=== PATIENT | male | born 1980 | race Caucasian/White ===

== ENCOUNTER → 2016-02-21 | Outpatient (CLI) | payer BC ==
--- NOTE | 2016-02-21 07:46 | DIAGNOSTIC IMAGING REPORT ---
ULTRASOUND RIGHT UPPER QUADRANT ABDOMEN CLINICAL HISTORY: Elevated hepatic transaminases. COMPARISON STUDY: No priors. TECHNIQUE: Real-time, grayscale, and color flow sonography of the right upper quadrant of the abdomen was performed. Images are reviewed in the transverse and longitudinal planes. FINDINGS: Liver: The liver appears mildly enlarged and demonstrates heterogeneous increased echotexture consistent with hepatic steatosis. There is no intrahepatic biliary ductal dilatation. The main portal vein is patent. Gallbladder: The gallbladder is normal in appearance. No gallstones are identified. There is no gallbladder wall thickening or pericholecystic fluid. A sonographic Irizarry's sign is reportedly absent. The common bile duct measures up to 0.4 cm in diameter. Pancreas: Visualized portions of the pancreatic head and body are normal in appearance. Right kidney: Survey images of the right kidney demonstrate normal size and echotexture. There is no hydronephrosis. Ascites: None. IMPRESSION: 1. Findings are consistent with mild hepatic steatosis. 2. No gallstones are identified. Electronically signed by: Jv Schwartz M.D. 02/21/2016 7:44 AM Dictated Date/Time: 02/21/2016 7:43 AM
== END | disposition home or self-care (01) ==
LOC: C.ULTR 07:06
PROVIDERS: ATTEND Nurse Practitioner
DX: R79.89 Other specified abnormal findings of blood chemistry (principal)

== ENCOUNTER 2020-04-01 10:39 | Inpatient (IN) ==
--- OUTSIDE RECORDS SUMMARY | 2020-04-01 10:42 | External Medical Summary | Continuity of Care Document ---
:1980 Author Name Jeri Rush, Provider Address Unavailable Unavailable , Care Team Providers Name Role Phone Unavailable Unavailable Unavailable Zuri Balderas Unavailable [email or web address] Zuri Muro Unavailable Unavailable [facility] Unavailable Unavailable Unavailable Unavailable Unavailable Problems Contact dermatitis due to poison amairani (692.6) (L23.7) NAFL (nonalcoholic fatty liver) (571.8) (K76.0) Nasal obstruction (478.19) (J34.89) Umbilical hernia (553.1) (K42.9) Back pain, lumbosacral (724.2) (M54.5) Abnormal liver function test (790.6) (R94.5) Allergies and Adverse Reactions No Known Drug Allergies (Allergy) Medications methylPREDNISolone 4 MG Oral Tablet Ther apy Pack; Take medication per package directions SUSAN Muro Start: 15-Oct-2016 Quantity: 1 21 Tablet Pack Refills: 0 Vitamin D Adri MORRISON Refills: 0 Procedures History of Surgery Of The Retina Status: Completed History of Surgery Status: Completed Immunizations Tdap (Adacel) On: 06-Aug-2014 Influenza On: 06-Dec-2014 Family History Mother Family history of kidney stones (V18.69) (Z84.1) Status: Act branden Family history of malignant neoplasm of breast (V16.3) (Z80. 3) Status: Active Sister Family history of kidney stones (V18.69) (Z84.1) Status: Act branden Grandfather Family history of malignant neoplasm of prostate (V16. 42) (Z80.42) Status: Active Social History - Smoking Status Never smoked tobacco Plan of Treatment Planned Observations Planned Goals not documented Results No Known Results Results not documented
--- OUTSIDE RECORDS SUMMARY | 2020-04-01 10:43 | External Medical Summary | Continuity of Care Document ---
:1980 Author Name Jeri Rush, Provider Address Unavailable Unavailable , Care Team Providers Name Role Phone Unavailable Unavailable Unavailable Zuri Balderas Unavailable [email or web address] Zuri Muro Unavailable Unavailable [facility] Unavailable Unavailable Unavailable Unavailable Unavailable Problems Umbilical hernia (553.1) (K42.9) Nasal obstruction (478.19) (J34.89) Abnormal liver function test (790.6) (R94.5) NAFL (nonalcoholic fatty liver) (571.8) (K76.0) Back pain, lumbosacral (724.2) (M54.5) Contact dermatitis due to poison amairani (692.6) (L23.7) Allergies and Adverse Reactions No Known Drug Allergies (Allergy) Medications Vitamin D Adri MORRISON Refills: 0 methylPREDNISolone 4 MG Oral Tablet Ther apy Pack; Take medication per package directions SUSAN Muro Start: 15-Oct-2016 Quantity: 1 21 Tablet Pack Refills: 0 Procedures History of Surgery Of [...]
[2020-04-01] MEDS ORDERED: SODIUM CHLORIDE 0.9% 1000ML 2,000 ML IV ONE (11:01)
--- NOTE | 2020-04-01 11:04 | Emergency Department Note ---
Impression & Plan Cholelithiasis, Elevated LFTs, Jaundice, Choledocholithiasis ED Provider Note NAME: SWETA CHONG AGE: 39 SEX: M : 1980 ARRIVES VIA: Walk-In INFORMANT: Patient ED PROVIDER(S): Wilman Cordoba DO CHIEF COMPLAINT: Abdominal pain HPI: Patient is a 39-year-old male that presents to the ER for epigastric nausea and upset stomach. This is has been present for the past week. notes that he has been a little bit yellow. He has been admitting to pale stools and dark urine. He feels itchy throughout. He denies any headache or change in vision. No chest pain or shortness of breath. Denies any dysuria, urgency or frequency. No other exacerbating or remitting factors. ROS: See above HPI for pertinent positives & negatives. A total of 10 systems reviewed and were otherwise negative. PAST MEDICAL HISTORY:See Below PAST SURGICAL HISTORY:See Below FAMILY HISTORY:See Below SOCIAL HISTORY:See Below HOME MEDICATIONS:See Below ALLERGIES:See Below VITALS:See Below PHYSICAL EXAMINATION: GENERAL: Sitting up in bed, alert, well appearing, well nourished, no distress, non-toxic EYE EXAM: Scleral icterus OROPHARYNX: no exudate, no erythema, lips, buccal mucosa, and tongue normal and mucous membranes are moist NECK: supple, no nuchal rigidity, no adenopathy, non-tender LUNGS: Clear to auscultation. Normal chest wall mechanics HEART: no murmurs, S1 normal and S2 normal ABDOMEN: abdomen soft, non-tender, normo-active bowel sounds, no masses, no rebound or guarding. UPPER EXTREMITIES: upper extremities are grossly normal. LOWER EXTREMITIES: No pitting edema. NEURO EXAM: Normal sensorium, cranial nerves II-XII grossly intact, normal speech, no gross weakness of arms, no gross weakness of legs. MEDICAL DECISION MAKING: Patient is a 39-year-old male who presents the ER for pale stools, dark urine, itchiness and yellowish hue. He also has epigastric abdominal discomfort. IV was established blood work was obtained. Labs show no significant leukocytosis or anemia. INR unremarkable. BMP was unremarkable. T bili was elevated at nearly 4. AST was 220 and ALT was 590. Alk phos was elevated. Lipase was normal. UA with an elevated bilirubin. Covid was negative. Ultrasound shows cholelithiasis. Based on his presentation I am concerned that he probably does have choledocholithiasis. Discussed with Anish Flores from gastroenterology who will evaluate him. He was given IV fluids, Zofran and Zosyn. Discussed with Dr. Spenser Soto for further evaluation. Triage Nursing notes reviewed. Limited review of prior medical records performed Vital Signs: reviewed and remarkable for no significant abnormalities Differential diagnosis: Differential diagnoses includes but is not limited to gastritis, peptic ulcer disease, GERD, gallbladder disease, pancreatitis, small bowel obstruction, acute coronary syndrome, pericarditis, ischemic bowel, irritable bowel disease, irritable bowel syndrome, appendicitis, diverticulitis, malignancy, hernia, urinary tract infection, torsion, perforation, trauma, infectious. ER treatment provided: See below Diagnostics interpreted by me: ECG: none Cardiac Monitoring: An order was placed for continuous cardiac monitoring. The monitor shows a rate of 60 with sinus rhythm. Laboratory studies: As stated above and show below. Imaging studies: Ultrasound shows cholelithiasis Consultation(s): Discussed with Jacki Flores as stated above Discussed with hospitalist for further evaluation Procedures: none Critical Care: None Past Med/Surg History Medical History (Updated 04/01/20 @ 16:41 by Wilman Cordoba DO) Left forearm fracture Surgical History (Updated 04/01/20 @ 14:06 by Andrea Iyer PA-C) H/O eye surgery Family History (Updated 04/01/20 @ 14:07 by Andrea Iyer PA-C) Mother Breast cancer Social History (Updated 04/01/20 @ 14:10 by Andrea Iyer PA-C) Smoking Status: Never smoker Hx Alcohol Use: No Hx Substance Use: No Preferred Language: Ukrainian Communication Ability: Effective Visual Impairment: No Limitations Hearing Ability: Normal [employer] Coordinator Required: No Beliefs That Will Affect Care: None marital status: marital status details: Lives with Marla Current Living Situation: Spouse and Family current occupational status: employed Feels Safe at Home: Yes Safety Concerns: Feels Safe At This Time Physical Activity Frequency Comment: Rides bike frequently. Assistive Devices: Contacts and Glasses Allergies Allergies Allergy/AdvReac Type Severity Reaction Status Date / Time No Known Allergies Allergy Unverified 04/01/20 11:21 Home Meds Home Medications Medication Instructions Recorded Confirmed bismuth subsalicylate 2 tab PO QID PRN 04/01/20 04/01/20 [Pepto-Bismol] calcium carbonate-simethicone 2 tab PO DAILY PRN 04/01/20 04/01/20 [Tums Anti-Gas/Antacid] diphenhydramine HCl [Benadryl] 25 mg PO HS PRN 04/01/20 04/01/20 omeprazole magnesium [Prilosec OTC] 20 mg PO DAILY 04/01/20 04/01/20 Results & Data (ED) Vital Signs Vital Signs - 24 hr 04/01/20 10:42 04/01/20 11:11 04/01/20 11:56 Temperature 36.8 C Temperature Source Temporal Artery Scan Pulse Rate 66 59 L Pulse Rate [Left] Respiratory Rate 16 14 Respiratory Effort / Characteristics Non-Labored Respiratory Depth Normal Respiratory Pattern Regular Blood Pressure 135/86 Blood Pressure [Right Arm] Blood Pressure Mean 102 Blood Pressure Mean [Right Arm] Blood Pressure Position Sitting Blood Pressure Position [Right Arm] Pulse Oximetry 98 99 Oxygen Delivery Method Room Air Room Air Sepsis Recent Fever Within 48 Hours No Sepsis New/Unexplained Change in Mental Status No Sepsis Action Taken by Nursing No Action Required 04/01/20 12:00 04/01/20 12:01 04/01/20 12:30 Temperature Temperature Source Pulse Rate 54 L 58 L 58 L Pulse Rate [Left] Respiratory Rate 16 12 14 Respiratory Effort / Characteristics Respiratory Depth Respiratory Pattern Blood Pressure 133/77 138/82 Blood Pressure [Right Arm] Blood Pressure Mean 95 100 Blood Pressure Mean [Right Arm] Blood Pressure Position Blood Pressure Position [Right Arm] Pulse Oximetry Oxygen Delivery Method Sepsis Recent Fever Within 48 Hours Sepsis New/Unexplained Change in Mental Status Sepsis Action Taken by Nursing 04/01/20 12:31 04/01/20 13:00 04/01/20 13:01 Temperature Temperature Source Pulse Rate 55 L 61 60 Pulse Rate [Left] Respiratory Rate 16 16 15 Respiratory Effort / Characteristics Respiratory Depth Respiratory Pattern Blood Pressure 134/83 Blood Pressure [Right Arm] Blood Pressure Mean 100 Blood Pressure Mean [Right Arm] Blood Pressure Position Blood Pressure Position [Right Arm] Pulse Oximetry Oxygen Delivery Method Sepsis Recent Fever Within 48 Hours Sepsis New/Unexplained Change in Mental Status Sepsis Action Taken by Nursing 04/01/20 13:30 04/01/20 13:31 Temperature Temperature Source Pulse Rate 60 64 Pulse Rate [Left] 65 Respiratory Rate 18 18 Respiratory Effort / Characteristics Non-Labored Spontaneous Respiratory Depth Normal Respiratory Pattern Blood Pressure 144/97 H Blood Pressure [Right Arm] 144/97 H Blood Pressure Mean 112 Blood Pressure Mean [Right Arm] 112 Blood Pressure Position Blood Pressure Position [Right Arm] Lying Pulse Oximetry 97 Oxygen Delivery Method Room Air Sepsis Recent Fever Within 48 Hours Sepsis New/Unexplained Change in Mental Status Sepsis Action Taken by Nursing Laboratory Data Result diagrams: 04/01/20 11:10 04/01/20 11:10 Lab Results 04/01/20 04/01/20 04/01/20 Range/Units 11:05 11:10 11:10 WBC 7.15 (4.8-10.8) K/uL RBC 5.40 (4.7-6.1) M/uL Hgb 16.5 (14.0-18.0) g/dL Hct 47.9 (42-52) % MCV 88.7 (80-100) fL MCH 30.6 (25-34) pg MCHC 34.4 (32-36) g/dL RDW Std Deviation 43.6 (36.4-46.3) fL RDW Coeff of Quynh 13.5 (11.5-14.5) % Plt Count 278 (130-400) K/uL MPV 10.8 H (7.4-10.4) fL Immature Gran % (Auto) 0.3 % Neut % (Auto) 67.9 % Lymph % (Auto) 23.6 % [place] % (Auto) 5.5 % Eos % (Auto) 2.0 % Baso % (Auto) 0.7 % Neut # (Auto) 4.86 (1.4-6.5) K/uL Lymph # (Auto) 1.69 (1.2-3.4) K/uL [place] # (Auto) 0.39 (0.11-0.59) K/uL Eos # (Auto) 0.14 (0-0.5) K/uL Baso # (Auto) 0.05 (0-0.2) K/uL Immature Gran # (Auto) 0.02 (0.00-0.02) K/uL PT 9.3 (9.0-12.0) Seconds INR 0.9 (0.9-1.1) Sodium (136-145) mmol/L Potassium (3.5-5.1) mmol/L Chloride (98-107) mmol/L Carbon Dioxide (21-32) mmol/L Anion Gap (3-11) BUN (7-18) mg/dl Creatinine (0.6-1.4) mg/dl Est Cr Clr Drug Dosing ml/min Est GFR ( Amer) Est GFR (Non-Af Amer) BUN/Creatinine Ratio (10-20) Glucose (70-99) mg/dl Calcium (8.5-10.1) mg/dl Total Bilirubin (0.2-1) mg/dl AST (15-37) U/L ALT (12-78) U/L Alkaline Phosphatase (45-117) U/L Total Protein (6.4-8.2) gm/dl Albumin (3.4-5.0) gm/dl Globulin (2.5-4.0) gm/dl Albumin/Globulin Ratio (0.9-2) Lipase (73-393) U/L Urine Color Dark Yellow Urine Appearance Clear (Clear) Urine pH 5.5 (4.5-7.5) Ur Specific [place] 1.013 (1.000-1.030) Urine Protein Negative (Negative) Urine Glucose (UA) Negative (Negative) Urine Ketones Negative (Negative) Urine Blood Negative (Negative) Urine Nitrite Negative (Negative) Urine Bilirubin 2+ H (Negative) Urine Urobilinogen Negative (Negative) Ur Leukocyte Esterase Negative (Negative) COVID-19 Eval Order SARS-CoV-2 (PCR) (Negative) Influenza Type A (PCR) (Neg) Influenza Type B (PCR) (Neg) RSV (RT-PCR) (Neg) 04/01/20 04/01/20 04/01/20 Range/Units 11:10 12:45 12:45 WBC (4.8-10.8) K/uL RBC (4.7-6.1) M/uL Hgb (14.0-18.0) g/dL Hct (42-52) % MCV (80-100) fL MCH (25-34) pg MCHC (32-36) g/dL RDW Std Deviation (36.4-46.3) fL RDW Coeff of Quynh (11.5-14.5) % Plt Count (130-400) K/uL MPV (7.4-10.4) fL Immature Gran % (Auto) % Neut % (Auto) % Lymph % (Auto) % [place] % (Auto) % Eos % (Auto) % Baso % (Auto) % Neut # (Auto) (1.4-6.5) K/uL Lymph # (Auto) (1.2-3.4) K/uL [place] # (Auto) (0.11-0.59) K/uL Eos # (Auto) (0-0.5) K/uL Baso # (Auto) (0-0.2) K/uL Immature Gran # (Auto) (0.00-0.02) K/uL PT (9.0-12.0) Seconds INR (0.9-1.1) Sodium 140 (136-145) mmol/L Potassium 4.1 (3.5-5.1) mmol/L Chloride 106 (98-107) mmol/L Carbon Dioxide 29 (21-32) mmol/L Anion Gap 5.0 (3-11) BUN 10 (7-18) mg/dl Creatinine 0.99 (0.6-1.4) mg/dl Est Cr Clr Drug Dosing 96.0 ml/min Est GFR ( Amer) 110.0 Est GFR (Non-Af Amer) 94.9 BUN/Creatinine Ratio 9.9 L (10-20) Glucose 92 (70-99) mg/dl Calcium 9.4 (8.5-10.1) mg/dl Total Bilirubin 3.9 H (0.2-1) mg/dl AST 220 H (15-37) U/L ALT 590 H (12-78) U/L Alkaline Phosphatase 369 H (45-117) U/L Total Protein 8.4 H (6.4-8.2) gm/dl Albumin 4.0 (3.4-5.0) gm/dl Globulin 4.4 H (2.5-4.0) gm/dl Albumin/Globulin Ratio 0.9 (0.9-2) Lipase 270 (73-393) U/L Urine Color Urine Appearance (Clear) Urine pH (4.5-7.5) Ur Specific [place] (1.000-1.030) Urine Protein (Negative) Urine Glucose (UA) (Negative) Urine Ketones (Negative) Urine Blood (Negative) Urine Nitrite (Negative) Urine Bilirubin (Negative) Urine Urobilinogen (Negative) Ur Leukocyte Esterase (Negative) COVID-19 Eval Order CovFluRsv at [facility] SARS-CoV-2 (PCR) NEGATIVE (Negative) Influenza Type A (PCR) Negative (Neg) Influenza Type B (PCR) Negative (Neg) RSV (RT-PCR) Negative (Neg) Administered Medications Lactated Ringer's (Lr) 1,000 mls @ 125 mls/hr IV .Q8H TIMOTEO Stop: 05/01/20 15:59 Last Admin: 04/01/20 16:18 Dose: 125 mls/hr Documented by: [id number] Ondansetron HCl (Ondansetron Inj 2 Mg/Ml 2 Ml Vial) 4 mg IV Q6H PRN PRN Reason: Nausea Stop: 05/01/20 15:54 Last Admin: 04/01/20 16:18 Dose: 4 mg Documented by: [id number] Discontinued Medications Sodium Chloride (Nss 1000ml) 2,000 mls @ 999 mls/hr IV .Q2H1M ONE Stop: 04/01/20 13:01 Last Infusion: 04/01/20 13:18 Dose: 0 mls/hr Documented by: [id number] Admin: 04/01/20 11:09 Dose: 999 mls/hr Documented by: [id number] Piperacillin Sod/Tazobactam (Sod 3.375 gm/ Dextrose) 100 ml in 115 mls @ 230 mls/hr IV NOW STA Stop: 04/01/20 13:03 Last Infusion: 04/01/20 14:02 Dose: 0 mls/hr Documented by: [id number] Admin: 04/01/20 13:18 Dose: 230 mls/hr Documented by: [id number] Discharge Plan Visit Data Chief Complaint: GI Assessment Stated Complaint: INDIGESTION,DISCOLORED STOOL ED Provider: Wilman Cordoba Discharge Problem: Cholelithiasis, Elevated LFTs, Jaundice, Choledocholithiasis Patient Disposition: Admitted As Inpatient Discharge Instructions Interventions: ED Discharge Assessment Last Done: 04/01/20 14:22 Discharge Problem: Cholelithiasis Qualifiers: Cholelithiasis location: other site Biliary obstruction: with biliary obstruction Qualified Code(s): K80.81 - Other cholelithiasis with obstruction
[2020-04-01 11:29] LABS: Basophils # (auto) 0.05 K/uL (0-0.2); Basophils % (auto) 0.7 %; Eosinophils # (auto) 0.14 K/uL (0-0.5); Hematocrit (blood only) 47.9 % (42-52); Hemoglobin 16.5 g/dL (14.0-18.0); Immature Granulocytes # (auto) 0.02 K/uL (0.00-0.02); Immature Granulocytes % (auto) 0.3 %; Lymphocytes # (auto) 1.69 K/uL (1.2-3.4); Lymphocytes % (auto) 23.6 %; Mean Corpuscular Hemoglobin 30.6 pg (25-34); Mean Corpuscular Hgb Conc 34.4 g/dL (32-36); Mean Corpuscular Volume 88.7 fL (80-100); Mean Platelet Volume 10.8 fL (7.4-10.4); Monocytes # (auto) 0.39 K/uL (0.11-0.59); Monocytes % (auto) 5.5 %; Neutrophils # (auto) 4.86 K/uL (1.4-6.5); Neutrophils % (auto) 67.9 %; Platelet Count 278 K/uL (130-400); RDW Coefficient of Variation 13.5 % (11.5-14.5); RDW Standard Deviation 43.6 fL (36.4-46.3); White Blood Count 7.15 K/uL (4.8-10.8)
[2020-04-01 11:29] LABS: Appearance Urine Clear (Clear); Blood Urine Negative (Negative); Color Urine Dark Yellow; Glucose Urine UA Negative (Negative); Ketones Urine Negative (Negative); Leukocyte Esterase Urine Negative (Negative); Nitrite Urine Negative (Negative); Protein Urine Negative (Negative); Specific Gravity Urine 1.013 (1.000-1.030); Urobilinogen Urine Negative (Negative); pH Urine 5.5 (4.5-7.5)
[2020-04-01 11:33] LABS: INR 0.9 (0.9-1.1); Prothrombin Time 9.3 Seconds (9.0-12.0)
[2020-04-01 11:34] LABS: Bilirubin Urine 2+ (Negative)
[2020-04-01 11:48] LABS: BUN Creatinine Ratio 9.9 (10-20); Calcium 9.4 mg/dl (8.5-10.1); Est GFR (Non-African American) 94.9; Potassium 4.1 mmol/L (3.5-5.1)
[2020-04-01 11:51] LABS: Albumin Globulin Ratio 0.9 (0.9-2); Bilirubin,Total 3.9 mg/dl (0.2-1); Globulin 4.4 gm/dl (2.5-4.0); Total Protein 8.4 gm/dl (6.4-8.2)
--- NOTE | 2020-04-01 12:14 | Ultrasound Report ---
US gallbladder CLINICAL HISTORY: Epigastric abdominal pain. COMPARISON STUDY: Abdominal ultrasound February 21, 2016. FINDINGS: No hepatic lesions are identified. There is no biliary ductal dilatation. The common bile d uct measures 6 mm in caliber. Gallbladder wall thickness is at the upper limits of normal. No sonogra phic Irizarry sign was reported. There is a small amount of sludge within the gallbladder. A few echoge sophia foci within the gallbladder are noted. These could reflect polyps or tiny stones. Gallbladder is mildly distended. There is no pericholecystic fluid. Pancreas is largely obscured. There is no right hydronephrosis. IMPRESSION: 1. Small amount of sludge within the gallbladder and a few tiny echogenic foci within the gallbladder which may reflect tiny stones or polyps. No sonographic Irizarry sign. These findings do not strongly suggest acute cholecystitis however if clinically indicated, a hepatobiliary scan could be obtained. 2. No biliary ductal dilatation. 3. Largely obscured pancreas. ACT 112: Negative or not required by law. Electronically signed by: Ovidio Nugent M.D. 04/01/2020 12:13 PM
[2020-04-01] MEDS ORDERED: PIPERACILLIN/TAZOBACTAM 3.375 GM in DEXTROSE 5% 100 ML/100 ML BAG IV STA (12:34)
[2020-04-01] MEDS ORDERED: PIPERACILL/TAZOBAC CONSULT ACTIVE PRN (12:34)
[2020-04-01 13:36] LABS: Influenza A virus by PCR Negative (Neg); Influenza B virus by PCR Negative (Neg); RSV by PCR Negative (Neg); SARS CoV2 RNA(COVID-19) InHosp NEGATIVE (Negative)
--- NOTE | 2020-04-01 13:36 | History & Physical Report ---
Date of Service April 01, 2020 Assessment & Plan (1) Elevated LFTs: Mr. Coffey is a 39 year old male without significant past medical history who presented to [facility] ER today complaining of Nausea, Pale Stools, Dark Urine, Diffuse Pruritus, Jaundice, Grossly Abnormal LFT's (Total Bilirubin 3.9 mg/dl, ALT 590 U/L, AST 220 U/L, Alk Phos 369 U/L) and he has evidence of Gall Bladder Disease (sludge and small stones, mildly distended gall bladder, wall thickness is at the upper limit of normal -- but it does not appear to be acutely inflamed). Suspect he may have had transient biliary obstruction / ? passage of a gall stone leading to his current symptoms. He is being admitted to obser vation status for further evaluation and treatment. Recommend the following: -- Admit to observation status on Med-Surg floor. -- NPO for now. -- Patient seen by Gastroenterology in the ER. -- Gall bladder ultrasound completed. -- STAT MRCP ordered by GI. -- Surgery consult ordered for possible cholecystectomy. -- Patient does not appear septic, normal WBC#, no fever, not an acute abdomen. -- Continue IVF's. -- Antiemetics as needed. -- Monitor daily LFT's, labs. -- Patient did receive a dose of Zosyn in the ER. (2) Jaundice: -- He has faint scleral icterus, pruritus, acholic stools, and dark urine consistent with hyperbilirubinemia. -- Total Bilirubin elevated at 3.9 mg/dl (reference range 0.2 to 1 mg/dl). -- Manage as outlined above. History of Present Illness Chief Complaint: -- Nausea x 8 days, Jaundice, Diffuse Pruritis, Abnormal LFT's. Primary Care Provider: SUSAN Kan Mr. Coffey is a 39 year old male without significant past medical history who presented to [facility] ER today complaining of Nausea, Pale Stools, Dark Urine, Diffuse Pruritus, Jaundice, and Grossly Abnormal LFT's (Total Bilirubin 3.9 mg/dl, ALT 590 U/L, AST 220 U/L, Alk Phos 369 U/L). Patient initially developed some upper abdominal discomfort 8 days ago which he described as "indigestion" with some burning in his chest up into his throat, associated nausea, and decreased appetite. He took omeprazole and the "indigestion" improved. He also took Pepto-Bismol which transiently turned his stools dark, but then his stools became very pale in color. He has noticed dark urine over the past week and he describes diffuse itching/pruritus, feeling bloated, decreased appetite, and he has lost about 2 pounds over the past week. Patient denies any fevers, chills, diarrhea, constipation, or any vomiting. He is able to keep fluids down, he does not feel like eating or have much of an appetite. He denies any focal abdominal pain at this time. Patient denies any chronic medical conditions and he does take any medications on a routine basis. He does take an ibuprofen once in a while, and rarely takes acetaminophen. He specifically denies any history of hepatitis, pancreatitis, or any known biliary issues. He has never had abdominal surgery. Patient rarely drinks alcohol, typically drinking 2 beers per month. He does not use IV drugs or illicit drugs. Allergies Allergy/AdvReac Type Severity Reaction Status Date / Time No Known Allergies Allergy Unverified 04/01/20 11:21 Home Medications Medication Instructions Recorded Confirmed Type bismuth subsalicylate 2 tab PO QID PRN 04/01/20 04/01/20 History [Pepto-Bismol] calcium carbonate-simethicone 2 tab PO DAILY PRN 04/01/20 04/01/20 History [Tums Anti-Gas/Antacid] diphenhydramine HCl [Benadryl] 25 mg PO HS PRN 04/01/20 04/01/20 History omeprazole magnesium [Prilosec OTC] 20 mg PO DAILY 04/01/20 04/01/20 History Past Med/Surg History Medical History GERD (gastroesophageal reflux disease) Left forearm fracture Surgical History H/O eye surgery Family History Mother Breast cancer Social History Smoking Status: Never smoker Hx Alcohol Use: No Hx Substance Use: No Preferred Language: Chilean Communication Ability: Effective Visual Impairment: No Limitations Hearing Ability: Normal Subpoena Server Required: No Beliefs That Will Affect Care: None marital status: marital status details: Lives with Marla Current Living Situation: Spouse and Family current occupational status: employed Feels Safe at Home: Yes Safety Concerns: Feels Safe At This Time Physical Activity Frequency Comment: Rides bike frequently. Assistive Devices: None Review of Systems Review of Systems: All systems reviewed & are unremarkable except as noted in Subjective Physical Exam Physical Exam: GENERAL: Patient is in no acute distress. HEENT: Head is atraumatic, normocephalic. Faint scleral icterus is noted. EOM's intact. Facies symmetric. No perioral cyanosis. Mucous membranes are moist. NECK: No JVD. JVP is not elevated. Carotid upstrokes are + 2 bilaterally. No bruits are noted. CHEST/LUNGS: Clear to auscultation throughout all lung baer. No wheezes, rales, or crackles. CVS: S1 and S2 are regular without obvious murmurs, gallops, or rubs. PMI is nondisplaced. No lifts, heaves, or thrills. No abdominal aortic or renal bruits. ABDOMINAL EXAM: Bowel sounds are present. No masses, organomegaly, or tenderness. EXTREMITIES: No clubbing or cyanosis. No edema. Intact posterior tibial and radial pulses bilaterally. NEUROLOGIC EXAM: Patient is awake, alert, and oriented. Pleasant and cooperative. Answers questions appropriately. Speech is clear. Normal movement in all 4 extremities. Gait pattern not assessed. Results & Data Results & Data ([facility]) Vital Signs (Past 12 Hours) Vital Signs Temp Pulse Resp BP Pulse Ox 04/01/20 13:01 60 15 04/01/20 13:00 61 16 134/83 04/01/20 12:31 55 L 16 04/01/20 12:30 58 L 14 138/82 04/01/20 12:01 58 L 12 04/01/20 12:00 54 L 16 133/77 04/01/20 11:56 59 L 14 04/01/20 11:11 99 04/01/20 10:42 36.8 C 66 16 135/86 98 Laboratory Results Laboratory Results - last 24 hr 04/01/20 04/01/20 04/01/20 11:05 11:10 11:10 WBC 7.15 RBC 5.40 Hgb 16.5 Hct 47.9 MCV 88.7 MCH 30.6 MCHC 34.4 RDW Std Deviation 43.6 RDW Coeff of Quynh 13.5 Plt Count 278 MPV 10.8 H Immature Gran % (Auto) 0.3 Neut % (Auto) 67.9 Lymph % (Auto) 23.6 [place] % (Auto) 5.5 Eos % (Auto) 2.0 Baso % (Auto) 0.7 Neut # (Auto) 4.86 Lymph # (Auto) 1.69 [place] # (Auto) 0.39 Eos # (Auto) 0.14 Baso # (Auto) 0.05 Immature Gran # (Auto) 0.02 PT 9.3 INR 0.9 Sodium Potassium Chloride Carbon Dioxide Anion Gap BUN Creatinine Est Cr Clr Drug Dosing Est GFR ( Amer) Est GFR (Non-Af Amer) BUN/Creatinine Ratio Glucose Calcium Total Bilirubin AST ALT Alkaline Phosphatase Total Protein Albumin Globulin Albumin/Globulin Ratio Lipase Urine Color Dark Yellow Urine Appearance Clear Urine pH 5.5 Ur Specific [place] 1.013 Urine Protein Negative Urine Glucose (UA) Negative Urine Ketones Negative Urine Blood Negative Urine Nitrite Negative Urine Bilirubin 2+ H Urine Urobilinogen Negative Ur Leukocyte Esterase Negative COVID-19 Eval Order SARS-CoV-2 (PCR) Influenza Type A (PCR) Influenza Type B (PCR) RSV (RT-PCR) 04/01/20 04/01/20 04/01/20 11:10 12:45 12:45 WBC RBC Hgb Hct MCV MCH MCHC RDW Std Deviation RDW Coeff of Quynh Plt Count MPV Immature Gran % (Auto) Neut % (Auto) Lymph % (Auto) [place] % (Auto) Eos % (Auto) Baso % (Auto) Neut # (Auto) Lymph # (Auto) [place] # (Auto) Eos # (Auto) Baso # (Auto) Immature Gran # (Auto) PT INR Sodium 140 Potassium 4.1 Chloride 106 Carbon Dioxide 29 Anion Gap 5.0 BUN 10 Creatinine 0.99 Est Cr Clr Drug Dosing 96.0 Est GFR ( Amer) 110.0 Est GFR (Non-Af Amer) 94.9 BUN/Creatinine Ratio 9.9 L Glucose 92 Calcium 9.4 Total Bilirubin 3.9 H AST 220 H ALT 590 H Alkaline Phosphatase 369 H Total Protein 8.4 H Albumin 4.0 Globulin 4.4 H Albumin/Globulin Ratio 0.9 Lipase 270 Urine Color Urine Appearance Urine pH Ur Specific [place] Urine Protein Urine Glucose (UA) Urine Ketones Urine Blood Urine Nitrite Urine Bilirubin Urine Urobilinogen Ur Leukocyte Esterase COVID-19 Eval Order CovFluRsv at [facility] SARS-CoV-2 (PCR) NEGATIVE Influenza Type A (PCR) Negative Influenza Type B (PCR) Negative RSV (RT-PCR) Negative Diagnostic Findings ULTRASOUND of GALLBLADDER 04/01/2020: FINDINGS: No hepatic lesions are identified. There is no biliary ductal dilatation. The common bile duct measures 6 mm in caliber. Gallbladder wall thickness is at the upper limits of normal. No sonographic Irizarry sign was reported. There is a small amount of sludge within the gallbladder. A few echogenic foci within the gallbladder are noted. These could reflect polyps or tiny stones. Gallbladder is mildly distended. There is no pericholecystic fluid. Pancreas is largely obscured. There is no right hydronephrosis. IMPRESSION: 1. Small amount of sludge within the gallbladder and a few tiny echogenic foci within the gallbladder which may reflect tiny stones or polyps. No sonographic Irizarry sign. These findings do not strongly suggest acute cholecystitis however if clinically indicated, a hepatobiliary scan could be obtained. 2. No biliary ductal dilatation. 3. Largely obscured pancreas. MRCP 04/01/2020 is pending. Medications Administered Discontinued Medications Sodium Chloride (Nss 1000ml) 2,000 mls @ 999 mls/hr IV .Q2H1M ONE Stop: 04/01/20 13:01 Last Infusion: 04/01/20 13:18 Dose: 0 mls/hr Documented by: [id number] Admin: 04/01/20 11:09 Dose: 999 mls/hr Documented by: [id number] Piperacillin Sod/Tazobactam (Sod 3.375 gm/ Dextrose) 100 ml in 115 mls @ 230 mls/hr IV NOW STA Stop: 04/01/20 13:03 Last Admin: 04/01/20 13:18 Dose: 230 mls/hr Documented by: [id number] Code Status & VTE Plan Code Status Full Code VTE Prophylaxis Plan VTE Prophylaxis will be ordered: Yes Supervising Physician Co-Signing Physician Notes I personally saw and examined the patient. I verified all chamberlain points and agree with ROBBY Iyer with the following exceptions and/or additions: 39 year old male with 1 week intermittent abdominal pain, nausea and pale stool. No fevers or chills. A/P Abdo - SNT, BS +ve, Chest CTAB, HS1+2, RRR, no murmurs A/P Elevated LFTs - suspected choledocholithiasis based on CT imaging however no biliary ductal dilatation therefore may have passed stone. Discussed with Cira DAVIS at bedside and planning to get MRCP to determine need for MRCP. Recommending cholecystectomy this admission, possibly at same time as ERCP therefore will consult surgery in addition. NPO with IV fluids pending MRCP results. PG Care Time/CCT Total # of Minutes Spent Total Time Spent with Patient: Total time spent is greater than 50% in coordination of care (as documented) at patient's floor/unit and/or counseling patient:39 Coding Level of Care Code 26426 Initial Inpt Care Lvl 3 Diagnoses Elevated LFTs R79.89 Jaundice R17 Time Spent (min) 65
--- NOTE | 2020-04-01 13:55 | Gastrointestinal Consultation ---
Date of Consultation April 01, 2020 Assessment & Plan (1) Elevated LFTs: His presentation of pain, elevated bilirubin, gallbladder sludge is suggestive of gallbladder disease. He may currently have choledocholithiasis which could not be seen on US or he may have recently passed gallbladder sludge. Will order MRCP. Please keep pt NPO for now. Surgical consult placed. He will likely need cholecystectomy. No clear indication for antibiotics (no leukocytosis or fever). Agree with/appreciate primary hospitalists management of IV fluids. Present on Admission?: Yes Supervising Physician Co-Signing Physician Notes I have seen and examined the patient and discussed the management with SUSAN Link. 39 yo male admitted with abdominal pain, nausea, and change in stool color. Recent NSAID use. Also reporting mild pruritus. PE noteable for well nourished male in nad, HEENT - faint scleral icterus, Pulm - Ctab, Abd - soft nt nd +bs Labs reviewed - ast/alt/alk phos/tb elevation Abd jose manuel reviewed MRCP pending Agree with further plan of care as per Teresa's assessment and plan. History of Present Illness Reason for Consultation: Elevated LFTs Requesting Physician: Dr. Soto, [facility] hospitalist Attending Physician: Dr. Soto History of Present Illness Mr. Oracio Coffey is 39 yr old male pt of Zuri Muro NP ([facility]). He has an otherwise unremarkable PMH. He presented to the ED today for abd pain. He experienced the acute onset up of upper abd pain last Wednesday with "indigestion," describing some feeling of burning in his chest/throat improved with OTC Prilosec. He also took Pepto Bismol and had black BMs for a few days, then acholic stools after stopping the Pepto Bismol. With the pain, he has also had pruritus,and dark urine. He has not had fevers/chills/sweats/nausea/vomiting/constipation or diarrhea but has "felt a little bloated." Appetite has been decreased. The pain seems to have resolved. On arrival, US with gallbladder sludge and borderline wall thickening. LFTs are elevated: T Bili 3.9, AST 220, ALT 590, Alk Phos 369. Lipase is normal. He does not have leukocytosis or fever. He denies any recent or past hx of increased alcohol (estimating 2 beers/month). Allergies Allergy/AdvReac Type Severity Reaction Status Date / Time No Known Allergies Allergy Unverified 04/01/20 11:21 Home Medications Medication Instructions Recorded Confirmed Type bismuth subsalicylate 2 tab PO QID PRN 04/01/20 04/01/20 History [Pepto-Bismol] calcium carbonate-simethicone 2 tab PO DAILY PRN 04/01/20 04/01/20 History [Tums Anti-Gas/Antacid] diphenhydramine HCl [Benadryl] 25 mg PO HS PRN 04/01/20 04/01/20 History omeprazole magnesium [Prilosec OTC] 20 mg PO DAILY 04/01/20 04/01/20 History Patient History Social History Smoking Status: Never smoker Preferred Language: Ukrainian Feels Safe at Home: Yes Review of Systems Review of Systems: ROS: Gen: Denies weakness, fevers, weight loss Eyes: No eye redness, or pain, no recent vision changes Resp: No SOB, no cough Cardio: No palpitations/irregular beats, no chest pain GI: See HPI, otherwise (-). : Denies pain on urination Skin: No jaundice, itching or new rashes Physical Exam Constitutional: WD/WN, vitals as above Eyes: PERRL mild icterus ENMT: external ear and nose normal, oropharynx normal Neck: trachea midline, no thyromegaly Respiratory: normal respiratory effort, lungs clear to auscultation Cardiovascular: RRR, no murmur, no edema Gastrointestinal (Abdomen): normal bowel sounds, soft, nontender, no hepatosplenomegaly Skin: Slight flat red rash on sides/back of neck. Minimal jaundice. Neurologic: CN's II-XI intact bilaterally Psychiatric: A+Ox3, euthymic affect Lymphatic: no cervical or axillary lymphadenopathy Results & Data ([facility]) Vital Signs (Past 12 Hours) Vital Signs Temp Pulse Resp BP Pulse Ox 04/01/20 13:31 64 18 04/01/20 13:30 60 19 144/97 H 04/01/20 13:01 60 15 04/01/20 13:00 61 16 134/83 04/01/20 12:31 55 L 16 04/01/20 12:30 58 L 14 138/82 04/01/20 12:01 58 L 12 04/01/20 12:00 54 L 16 133/77 04/01/20 11:56 59 L 14 04/01/20 11:11 99 04/01/20 10:42 36.8 C 66 16 135/86 98 Laboratory Results WBC 7, Hb 16, Hct 47, K 4.1, BUN 10, Cr 0.99, Diagnostic Findings Gallbladder US 04/01/20: 1. Small amount of sludge within the gallbladder and a few tiny echogenic foci within the gallbladder which may reflect tiny stones or polyps. No sonographic Irizarry sign. These findings do not strongly suggest acute cholecystitis however if clinically indicated, a hepatobiliary scan could be obtained. 2. No biliary ductal dilatation. 3. Largely obscured pancreas.
--- NOTE | 2020-04-01 15:52 | Magnetic Resonance Report ---
MR MRCP CLINICAL HISTORY: elevated LFTs, gallstones COMPARISON STUDY: Biliary ultrasound dated 04/01/2020 FINDINGS: A breath-hold MRCP was performed. The spleen is the upper limits of normal in size. There is no hydronephrosis. There are no pleural effusions. No definite gallbladder calculi are visualized. There is no intra or extrahepatic biliary ductal dilatation. The common bile duct measures 4 mm in di ameter. Tiny common bile duct filling defects are suspected suspicious for calculi. There is no pancreatic ductal dilatation. There is a nonspecific 5 mm cystic which potentially lies w ithin the pancreatic body. IMPRESSION: 1. Tiny common bile duct filling defects suspicious for calculi 2. No evidence of intra or extrahepatic biliary ductal dilatation 3. No evidence of pancreatic ductal dilatation 4. Equivocal 5 mm cystic lesion within the pancreatic body ACT 112: Negative or not required by law. Electronically signed by: Willie Diana M.D. 04/01/2020 3:51 PM
[2020-04-01] MEDS ORDERED: ALUMINUM/MAGNESIUM SUSP 30 ML UDC PO PRN (15:55)
[2020-04-01] MEDS ORDERED: ACETAMINOPHEN 325 MG TAB PO PRN (15:55)
[2020-04-01] MEDS ORDERED: LACTATED RINGER'S 1,000 ML IV SCH (16:00)
[2020-04-01] MEDS: ONDANSETRON INJ 2 MG/ML 2 ML VIAL IV PRN (16:18)
[2020-04-01] MEDS ORDERED: INFLUENZA VIRUS QUAD VACCINE 0.5 ML SYR IM ONE (16:30)
[2020-04-01] MEDS ORDERED: INFLUENZA ADMINISTRATION CHARGE ONE (16:30)
[2020-04-01] MEDS: PIPERACILLIN/TAZOBACTAM 3.375 GM in DEXTROSE 5% 100 ML IV SCH (18:49)
--- NOTE | 2020-04-01 20:40 | Surgery Consultation ---
Date of Consultation April 01, 2020 Assessment & Plan (1) Choledocholithiasis: Patient has been admitted to the medical service. Gastroenterology consult has been noted. Patient will be kept n.p.o. Continue antibiotics in the form of Zosyn Continue intravenous fluids. The bedside RN has noted that the patient's lactated Ringer's is not compatible with his Zosyn as requested we change this to normal saline. After discussion with the medicine service this has been performed. I discussed the case with my attending physician Dr. Savage. At the present time it appears that the patient will require an ERCP and eventual cholecystectomy. Dr. Savage has requested we continue the interventions listed above as well as repeat LFTs tomorrow morning. Further recommendations as well surgical intervention will be dependent on further input from gastroenterology. History of Present Illness Reason for Consultation: Elevated LFTs and gallbladder sludge Attending Physician: Spenser Soto MD History of Present Illness This is a 39-year-old male who presented to [facility] emergency department due to approximately 1 week of pruritus, nausea, discolored urine, and discolored stool. Patient also noted some generalized abdominal discomfort that he attributed to indigestion. He notes that the abdominal discomfort did not radiate anywhere and he did not identify any palliative or provocative factors. He notes he has not had this problem in the past. He has never had any abdominal surgery in the past. He notes that he has lost some weight over the past several months but he notes that this is intentional and he has done so through exercise. He has not had any change in appetite. He has not had any change in his bowel habits. He has never had an upper endoscopy or colonoscopy. He has no family history of cancer. The patient underwent labs and imaging in the emergency department. CBC revealed white blood cell count, hemoglobin, hematocrit, and platelet count were all within normal range. His coagulation studies were noted to be normal. Temperature profile did reveal his sodium, potassium, BUN, and creatinine were all within normal range. He was noted to have significant elevation of his LFTs with a total bilirubin of 3.9, and AST of 220, and ALT of 590, and an alkaline phosphatase of 369. His lipase was noted to be normal. Patient did have a Covid test which was noted to be negative. Gallbladder ultrasound was performed that did not show any evidence of cholecystitis. A small amount of sludge was noted to be within the gallbladder along with some echogenic foci that were felt to reflect tiny gallstones. No biliary ductal dilatation was noted. Due to his LFT elevation a gastroenterology consultation was obtained. There is concern noted for choledocholithiasis on MRCP was ordered. The study showed common bile duct filling defect suspicious for calculi. There is no evidence of biliary ductal dilatation. Patient is currently n.p.o., he is receiving antibiotics in the form of Zosyn, and he is receiving intravenous fluids. At the time of my exam he is resting comfortably in bed in no pain and in no distress Allergies Allergy/AdvReac Type Severity Reaction Status Date / Time No Known Allergies Allergy Unverified 04/01/20 11:21 Home Medications Medication Instructions Recorded Confirmed Type bismuth subsalicylate 2 tab PO QID PRN 04/01/20 04/01/20 History [Pepto-Bismol] calcium carbonate-simethicone 2 tab PO DAILY PRN 04/01/20 04/01/20 History [Tums Anti-Gas/Antacid] diphenhydramine HCl [Benadryl] 25 mg PO HS PRN 04/01/20 04/01/20 History omeprazole magnesium [Prilosec OTC] 20 mg PO DAILY 04/01/20 04/01/20 History Patient History Medical History Left forearm fracture Surgical History H/O eye surgery Family History Mother Breast cancer Social History Smoking Status: Never smoker Hx Alcohol Use: No Hx Substance Use: No Preferred Language: Bruneian Communication Ability: Effective Visual Impairment: No Limitations Hearing Ability: Normal Geopolitics Teacher Required: No Beliefs That Will Affect Care: None marital status: marital status details: Lives with Marla Current Living Situation: Spouse and Family current occupational status: employed Feels Safe at Home: Yes Safety Concerns: Feels Safe At This Time Physical Activity Frequency Comment: Rides bike frequently. Assistive Devices: Contacts and Glasses Review of Systems Constitutional: + weight loss (As noted in HPI); no fever, no chills, no fatigue and no anorexia Eyes: Scleral jaundice noted Ear, Nose, Mouth, Throat: no ear pain Respiratory: no cough and no dyspnea Cardiovascular: no chest pain Gastrointestinal: + heartburn and + nausea; no vomiting, no dysphagia, no change in bowel habits and no diarrhea/loose stools Genitourinary: no dysuria Musculoskeletal: no back pain Integumentary: no rash Neurologic: no localized weakness Physical Exam Constitutional: well developed and well nourished; no acute distress Eyes: Scleral jaundice noted ENMT: Ears: no hearing impairment Sublingual jaundice noted Neck: trachea midline Respiratory: normal respiratory effort, lungs clear to auscultation Cardiovascular: Rate/Rhythm: regular rate and regular rhythm Gastrointestinal (Abdomen): Soft, nontender, nondistended. Palpation did not cause pain Musculoskeletal: No calf tenderness noted Skin: + jaundice Neurologic: moves all extremities Psychiatric: A+Ox3, euthymic affect Results & Data ([facility]) Vital Signs (Past 12 Hours) Vital Signs Temp Pulse Pulse Resp BP BP Pulse Ox 04/01/20 17:42 97 04/01/20 15:56 37.0 C 57 L 14 154/95 H 97 04/01/20 15:55 99 04/01/20 14:01 59 L 17 98 04/01/20 14:00 61 22 135/90 97 04/01/20 13:31 64 18 04/01/20 13:30 60 65 18 144/97 H 144/97 H 97 04/01/20 13:01 60 15 04/01/20 13:00 61 16 134/83 04/01/20 12:31 55 L 16 04/01/20 12:30 58 L 14 138/82 04/01/20 12:01 58 L 12 04/01/20 12:00 54 L 16 133/77 04/01/20 11:56 59 L 14 04/01/20 11:11 99 04/01/20 10:42 36.8 C 66 16 135/86 98 PG Care Time/CCT Total # of Minutes Spent Total Time Spent with Patient: Total time spent is greater than 50% in coordination of care (as documented) at patient's floor/unit and/or counseling patient: Coding Level of Care Code 05810 Inpt Consult Level 5 Diagnoses Choledocholithiasis K80.50
[2020-04-01] MEDS: SODIUM CHLORIDE 0.9% 1000ML 1,000 ML IV SCH (20:55)
[2020-04-02] MEDS: PIPERACILLIN/TAZOBACTAM 3.375 GM in DEXTROSE 5% 100 ML IV SCH ×3 (02:08→18:26)
[2020-04-02] MEDS: SODIUM CHLORIDE 0.9% 1000ML 1,000 ML IV SCH ×4 (05:04→23:35)
[2020-04-02 06:52] LABS: Basophils # (auto) 0.04 K/uL (0-0.2); Basophils % (auto) 0.6 %; Eosinophils # (auto) 0.18 K/uL (0-0.5); Eosinophils % (auto) 2.6 %; Hemoglobin 14.2 g/dL (14.0-18.0); Immature Granulocytes # (auto) 0.02 K/uL (0.00-0.02); Immature Granulocytes % (auto) 0.3 %; Lymphocytes % (auto) 28.5 %; Mean Corpuscular Hgb Conc 33.8 g/dL (32-36); Mean Corpuscular Volume 88.6 fL (80-100); Mean Platelet Volume 11.1 fL (7.4-10.4); Monocytes # (auto) 0.47 K/uL (0.11-0.59); Monocytes % (auto) 6.7 %; Neutrophils # (auto) 4.31 K/uL (1.4-6.5); Neutrophils % (auto) 61.3 %; Platelet Count 240 K/uL (130-400); RDW Coefficient of Variation 13.2 % (11.5-14.5); RDW Standard Deviation 43.1 fL (36.4-46.3); Red Blood Count 4.74 M/uL (4.7-6.1); White Blood Count 7.02 K/uL (4.8-10.8)
[2020-04-02 07:35] LABS: Albumin Level 3.1 gm/dl (3.4-5.0); BUN Creatinine Ratio 9.2 (10-20); Creatinine Clr Calc Pharmacy 94.1 ml/min; Est GFR (African American) 107.3; Est GFR (Non-African American) 92.6; Potassium 3.8 mmol/L (3.5-5.1)
[2020-04-02 07:38] LABS: Bilirubin,Total 5.2 mg/dl (0.2-1); Globulin 3.2 gm/dl (2.5-4.0); Total Protein 6.3 gm/dl (6.4-8.2)
[2020-04-02] MEDS: PANTOprazole 40 MG TAB PO SCH (08:02)
--- NOTE | 2020-04-02 08:38 | Gastroenterology Progress Note ---
Date of Service April 02, 2020 Assessment & Plan (1) Elevated LFTs: Choledocholithiasis, likely chronic cholecystitis ERCP today by Dr. Bermudez. Procedure including risks described in detail. Pt would like to go forward with procedure. Please keep NPO. Spoke with surgery who plans cholecystectomy tomorrow. Admission and Anticipated Discharge Date Admission Date: April 01, 2020 Supervising Physician Co-Signing Physician Notes I have seen and examined the patient and discussed the management with SUSAN Link. 39 yo male admitted through the ER yesterday with abdominal pain and nausea and elevated lft's, imaging suggestive of gallstones, MRCP overnite showing filling defects in cbd and bump in bilirubin. Feeling better this am- no fevers over nite, pain reportedly resolved. PE unchanged- no significant scleral icterus, abd - soft nt nd +bs Labs reviewed- bump in bili MRCP reviewed Plan for ERCP later today with Dr. Bermudez. Subjective 39-year-old male admitted yesterday for 1 week of intermittent upper abdomen pain "indigestion" with elevated LFTs CT suggestive of chronic cholecystitis, sludge in the gallbladder, MRCP with small CBD stones. Afebrile. No leukocytosis. Hemodynamically stable. T Bili increased today (3.9->5.2), transaminases similar to yesterday (AST 220->222, ALT 590 -> 509, Alk Phos 369- >276). Feels well. Walking in his room. No N/V or pain at this time. Review of Systems Review of Systems: ROS: Gen: Denies weakness, fevers, weight loss Eyes: No eye redness, or pain, no recent vision changes Resp: No SOB, no cough Cardio: No palpitations/irregular beats, no chest pain GI: See HPI, otherwise (-). : Denies pain on urination Skin: No jaundice, itching or new rashes Physical Exam Constitutional: WD/WN, vitals as above Eyes: PERRL ENMT: external ear and nose normal, oropharynx normal Neck: trachea midline, no thyromegaly Respiratory: normal respiratory effort, lungs clear to auscultation Cardiovascular: RRR, no murmur, no edema Gastrointestinal (Abdomen): normal bowel sounds, soft, nontender, no hepatosplenomegaly Neurologic: CN's II-XI intact bilaterally Psychiatric: A+Ox3, euthymic affect Lymphatic: no cervical or axillary lymphadenopathy Results & Data ([facility]) Vital Signs (Past 12 Hours) Vital Signs Temp Pulse Resp BP Pulse Ox 04/02/20 07:08 36.6 C 42 L 18 124/71 96 04/01/20 22:45 36.6 C 47 L 16 132/81 96 Laboratory Results WBC 7, Hb 14, HCT 42, PLT F2 40, NA 139, K3.8, BUN 9, CR 1.1, glucose 85. See HPI for LFTs. Diagnostic Findings MRCP 04/01/20: 1. Tiny common bile duct filling defects suspicious for calculi 2. No evidence of intra or extrahepatic biliary ductal dilatation 3. No evidence of pancreatic ductal dilatation 4. Equivocal 5 mm cystic lesion within the pancreatic body
[2020-04-02 11:24] LABS: Influenza A virus by PCR Negative (Neg); Influenza B virus by PCR Negative (Neg); RSV by PCR Negative (Neg); SARS CoV2 RNA(COVID-19) InHosp NEGATIVE (Negative)
--- NOTE | 2020-04-02 11:30 | Surgery Progress Note ---
Date of Service April 02, 2020 Assessment & Plan (1) Cholelithiasis: (2) Choledocholithiasis: LFT's continue to rise. for ERCP today will recheck LFT's tomorrow after ERCP...assuming ERCP is successful.... will plan lap rohit tomorrow. discussed options/risks ( bleeding/infection/bile duct injury or leaks/ injury to other organs, pe/mi/cva/etc.... pt agreeable. questions answered. consent signed. (3) Elevated LFTs: Admission and Anticipated Discharge Date Admission Date: April 01, 2020 Subjective pt seen. feeling better today. no new complaints. Physical Exam Constitutional: WD/WN, vitals as above no acute distress and not ill appearing Eyes: PERRL, conjunctivae normal, anicteric sclerae EOM intact bilaterally ENMT: external ear and nose normal, oropharynx normal Ears: no hearing impairment Neck: trachea midline, no thyromegaly Respiratory: normal respiratory effort; no respiratory distress and does not use accessory muscles Cardiovascular: Rate/Rhythm: regular rate and regular rhythm Gastrointestinal (Abdomen): normal bowel sounds, soft, nontender, no hepatosplenomegaly Skin: no rashes, warm and dry Psychiatric: Orientation: alert, oriented x 3 and cooperative Results & Data ([facility]) Vital Signs (Past 12 Hours) Vital Signs Temp Pulse Resp BP Pulse Ox 04/02/20 07:08 36.6 C 42 L 18 124/71 96 PG Care Time/CCT Total # of Minutes Spent Total Time Spent with Patient: Total time spent is greater than 50% in coordination of care (as documented) at patient's floor/unit and/or counseling patient: Coding Level of Care Code 20758 Subseq Hosp Care Lvl 3 Diagnoses Cholelithiasis K80.81 Biliary obstruction: with biliary obstruction Cholelithiasis location: other site Choledocholithiasis K80.50 Elevated LFTs R79.89 (1) Cholelithiasis Biliary obstruction: with biliary obstruction Cholelithiasis location: other site Qualified Code(s): K80.81 - Other cholelithiasis with obstruction
--- NOTE | 2020-04-02 12:42 | Hospitalist Progress Note ---
Date of Service April 02, 2020 Assessment & Plan (1) Cholelithiasis: Elevated LFTs: Mr. Coffey is a 39 year old male without significant past medical history who presented to [facility] ER today complaining of Nausea, Pale Stools, Dark Urine, Diffuse Pruritus, Jaundice, Grossly Abnormal LFT's (Total Bilirubin 3.9 mg/dl, ALT 590 U/L, AST 220 U/L, Alk Phos 369 U/L) and he has evidence of Gall Bladder Disease (sludge and small stones, mildly distended gall bladder, wall thickness is at the upper limit of normal -- but it does not appear to be acutely inflamed). Suspect he may have had transient biliary obstruction / ? passage of a gall stone leading to his current symptoms. He is being admitted to observation status for further evaluation and treatment. Recommend the following: -- Patient will remain NPO for now. -Abnormal MRCP. -Will get ERCP later today and cholescytectomy tomorrow. -Pain appears better controlled Jaundice: -- He has faint scleral icterus, pruritus, acholic stools, and dark urine consistent with hyperbilirubinemia. -- Total Bilirubin elevated at 3.9 mg/dl (reference range 0.2 to 1 mg/dl). -- Manage as outlined above. (2) Jaundice: Admission and Anticipated Discharge Date Admission Date: April 01, 2020 Subjective 39 yo male has no new complaints. Patient has no pain or discomfort. Review of Systems Review of Systems: All systems reviewed & are unremarkable except as noted in HPI & below Physical Exam Constitutional: WD/WN, vitals as above Eyes: PERRL, conjunctivae normal, anicteric sclerae ENMT: external ear and nose normal, oropharynx normal Neck: trachea midline, no thyromegaly Respiratory: normal respiratory effort, lungs clear to auscultation Cardiovascular: RRR, no murmur, no edema Gastrointestinal (Abdomen): normal bowel sounds, soft, nontender, no hepatosplenomegaly Musculoskeletal: no cyanosis or clubbing, extremities motor strength 5/5 Skin: no rashes, warm and dry Neurologic: PERRL, EOMI, accommodation nl, no face palsy, no dysarthria Psychiatric: A+Ox3, euthymic affect Results & Data Results & Data ([facility]) Vital Signs (Past 12 Hours) Vital Signs Temp Pulse Resp BP Pulse Ox 04/02/20 07:08 36.6 C 42 L 18 124/71 96 PG Care Time/CCT Total # of Minutes Spent Total Time Spent with Patient: Total time spent is greater than 50% in coordination of care (as documented) at patient's floor/unit and/or counseling patient: Coding Level of Care Code 48079 Subseq Hosp Care Lvl 2 Diagnoses Cholelithiasis K80.81 Biliary obstruction: with biliary obstruction Cholelithiasis location: other site Jaundice R17 Time Spent (min) 25 (1) Cholelithiasis Biliary obstruction: with biliary obstruction Cholelithiasis location: other site Qualified Code(s): K80.81 - Other cholelithiasis with obstruction
[2020-04-02] MEDS ORDERED: MIDAZOLAM HCL 1 MG/ML 2ML VIAL ONE (12:48)
[2020-04-02] MEDS ORDERED: LIDOCAINE HCL 2% 2 ML VIAL/AMP(20MG/ML) INFIL ONE (12:48)
[2020-04-02] MEDS ORDERED: PROPOFOL IV EMULSION 10 MG/ML 20 ML VIAL IV ONE (12:48)
[2020-04-02] MEDS ORDERED: fentaNYL citrate 100 MCG/2 ML VIAL ONE ×2 (12:48→14:40)
--- NOTE | 2020-04-02 13:32 | Anesthesiology Consultation ---
Date of Service April 02, 2020 Covid 19 negative on 04/02/20. Assessment & Plan (1) Encounter for pre-operative examination: Chart Review Chart Review: Acceptable Risk for Surgery and Patient NOT seen in Pre Admission Testing Consults Requested none History Surgery Operation Date: 04/02/20 14:10 Proposed Procedures p Endoscopic Retrograde Cholangiopancreatogram - Francisco Bermudez DO Operation Date: 04/03/20 11:00 Proposed Procedures p Laparoscopic Cholecystectomy, Possible Cholangiogram - Fitz Savage DO Height/Weight Height: 5 ft 8 in Weight: 79.832 kg Allergies Allergy/AdvReac Type Severity Reaction Status Date / Time No Known Allergies Allergy Unverified 04/01/20 11:21 Medications Home Medications Medication Instructions Recorded Confirmed Last Taken bismuth subsalicylate 2 tab PO QID PRN 04/01/20 04/01/20 04/01/20 [Pepto-Bismol] calcium carbonate-simethicone 2 tab PO DAILY PRN 04/01/20 04/01/20 04/01/20 [Tums Anti-Gas/Antacid] diphenhydramine HCl [Benadryl] 25 mg PO HS PRN 04/01/20 04/01/20 Unknown omeprazole magnesium [Prilosec OTC] 20 mg PO DAILY 04/01/20 04/01/20 04/01/20 Active Medications Generic Name Dose Route Start Last Admin Trade Name Freq PRN Reason Stop Dose Admin Piperacillin Sod/Tazobactam 115 mls @ 28.75 mls/hr 04/01/20 18:00 04/02/20 09:59 Sod 3.375 gm/ Dextrose IV 04/11/20 17:59 28.8 mls/hr Q8H TIMOTEO Administration Protocol Sodium Chloride 1,000 mls @ 125 mls/hr 04/01/20 20:15 04/02/20 12:36 Nss 1000ml IV 05/01/20 20:14 125 mls/hr .Q8H TIMOTEO Administration Ondansetron HCl 4 mg 04/01/20 15:55 04/01/20 16:18 Ondansetron Inj 2 Mg/Ml 2 Ml Vial IV 05/01/20 15:54 4 mg Q6H PRN Administration Nausea Pantoprazole Sodium 40 mg 04/02/20 09:00 04/02/20 08:02 Pantoprazole 40 Mg Tab PO 05/02/20 08:59 40 mg DAILY TIMOTEO Administration NPO Date Last Intake of Fluids: 04/01/20 Time Last Intake of Fluids: 10:00 Date Last Intake of Solids: 04/01/20 Time Last Intake of Solids: 10:00 Past Medical History Medical History GERD (gastroesophageal reflux disease) Left forearm fracture Past Family History Family History Mother Breast cancer Past Surgical History Surgical History H/O eye surgery Social History Smoking Status: Never smoker Hx Alcohol Use: No alcohol intake frequency: a few times a week Hx Substance Use: No Physical Exam Vital Signs Last Vital Signs Temp 36.9 C 04/02/20 12:57 Pulse 50 L 04/02/20 12:57 Resp 16 04/02/20 12:57 BP 130/74 04/02/20 12:57 Pulse Ox 98 04/02/20 12:57 Testing Laboratory Results 04/02/20 06:01 04/02/20 06:01 PT 9.3 Seconds (9.0-12.0) 04/01/20 11:10 INR 0.9 (0.9-1.1) 04/01/20 11:10 Urine Color Dark Yellow 04/01/20 11:05 Urine Appearance Clear (Clear) 04/01/20 11:05 Urine pH 5.5 (4.5-7.5) 04/01/20 11:05 Ur Specific [place] 1.013 (1.000-1.030) 04/01/20 11:05 Urine Protein Negative (Negative) 04/01/20 11:05 Urine Glucose (UA) Negative (Negative) 04/01/20 11:05 Urine Ketones Negative (Negative) 04/01/20 11:05 Urine Nitrite Negative (Negative) 04/01/20 11:05 Ur Leukocyte Esterase Negative (Negative) 04/01/20 11:05
[2020-04-02] MEDS ORDERED: INDOMETHACIN 50 MG SUPP PR ONE ×2 (13:39→13:51)
--- NOTE | 2020-04-02 13:51 | History & Physical Bridge Note ---
Date of Service April 02, 2020 History & Physical Bridge Note I have examined the patient, reviewed the History & Physical and in the interval since the performance of the History & Physical I have noted the following changes of clinical significance: no changes noted. I have discussed the risks of ERCP to include bleeding, infection, perforation, pain, pancreatitis and failed biliary cannulation. MR MRCP CLINICAL HISTORY: elevated LFTs, gallstones COMPARISON STUDY: Biliary ultrasound dated 04/01/2020 FINDINGS: A breath-hold MRCP was performed. The spleen is the upper limits of normal in size. There is no hydronephrosis. There are no pleural effusions. No definite gallbladder calculi are visualized. There is no intra or extrahepatic biliary ductal dilatation. The common bile duct measures 4 mm in diameter. Tiny common bile duct filling defects are suspected suspicious for calculi. There is no pancreatic ductal dilatation. There is a nonspecific 5 mm cystic which potentially lies within the pancreatic body. IMPRESSION: 1. Tiny common bile duct filling defects suspicious for calculi 2. No evidence of intra or extrahepatic biliary ductal dilatation 3. No evidence of pancreatic ductal dilatation 4. Equivocal 5 mm cystic lesion within the pancreatic body
[2020-04-02] MEDS ORDERED: ATROPINE SULFATE 0.1 MG/ML 10ML SYR IV PRN (14:40)
[2020-04-02] MEDS ORDERED: LABETALOL HCL IV 5 MG/ML 20ML IV PRN (14:40)
[2020-04-02] MEDS ORDERED: ONDANSETRON INJ 2 MG/ML 2 ML VIAL IV PRN (14:40)
[2020-04-02] MEDS ORDERED: fentaNYL citrate 100 MCG/2 ML VIAL IV PRN (14:40)
[2020-04-02] MEDS ORDERED: ePHEDrine sulfate 50 MG/ML AMP IV PRN (14:40)
[2020-04-02] MEDS ORDERED: PHENYLEPHRINE 100MCG/ML 5ML SYR IV PRN (14:40)
[2020-04-02] MEDS ORDERED: HYDROmorphone INJ 1 MG/ML SYRINGE IV PRN (14:40)
[2020-04-02] MEDS ORDERED: MEPERIDINE HCL 25 MG/ML CARP/VIAL IV PRN (14:40)
[2020-04-02] MEDS ORDERED: SUCCINYLCHOLINE CHLORIDE 20 MG/ML 10 ML VIAL IV ONE (14:47)
[2020-04-02] MEDS ORDERED: ROCURONIUM BROMIDE 10 MG/ML 5 ML VIAL IV ONE (14:47)
[2020-04-02] MEDS ORDERED: ONDANSETRON INJ 2 MG/ML 2 ML VIAL ONE (14:47)
--- NOTE | 2020-04-02 15:09 | Communication Note ---
Date of Service: April 02, 2020 The patient underwent ERCP this afternoon. Multiple darkly pigmented stones and a large amount of sludge material was removed from the common bile duct. A prophylactic pancreatic stent was placed. A biliary stent was also placed. Recommendations Cholecystectomy as planned by general surgery Would suggest repeat liver function tests establish trend Repeat ERCP in 6 to 8 weeks Patient may have clear liquids this evening from my perspective Avoid use of nonsteroidals and anticoagulation for 5 days
--- NOTE | 2020-04-02 15:09 | GI REPORT ---
Patient Name: Oracio Coffey Procedure Date: 04/02/2020 2:25 PM Date of : 1980 Admit Type: Inpatient Age: 39 Gender: Male Attending MD: Francisco Bermudez DO Procedure: ERCP Providers: Francisco Bermudez DO Referring MD: Fitz Savage, Zuri Muro Indications: Abdominal pain of suspected biliary origin, Abnormal MRCP, Jaundice Medicines: General Anesthesia Complications: No immediate complications. Estimated blood loss: Minimal. Estimated Blood Loss: Estimated blood loss was minimal. Procedure: Pre-Anesthesia Assessment: - Prior to the procedure, a History and Physical was performed, and patient medications, allergies and sensitivities were reviewed. The patient's tolerance of previous anesthesia was reviewed. - The risks and benefits of the procedure and the sedation options and risks were discussed with the patient. All questions were answered and informed consent was obtained. - Patient identification and proposed procedure were verified prior to the procedure by the physician, the nurse and the research chemist. The procedure was verified in the procedure room. - Pre-procedure physical examination revealed no contraindications to sedation. - ASA Grade Assessment: II - A patient with mild systemic disease. - After reviewing the risks and benefits, the patient was deemed in satisfactory condition to undergo the procedure. - The anesthesia plan was to use general anesthesia. - Immediately prior to administration of medications, the patient was re-assessed for adequacy to receive sedatives. - The heart rate, respiratory rate, oxygen saturations, blood pressure, adequacy of pulmonary ventilation, and response to care were monitored throughout the procedure. - The physical status of the patient was re-assessed after the procedure. After obtaining informed consent, the scope was passed under direct vision. Throughout the procedure, the patient's blood pressure, pulse, and oxygen saturations were monitored continuously. The scope was introduced through the mouth, and advanced to the duodenum and used to inject contrast into the bile duct. The ERCP was accomplished without difficulty. The patient tolerated the procedure well. Findings: The biomathematician film was normal. The esophagus was successfully intubated under direct vision without detailed examination of the pharynx, larynx, and associated structures, and upper GI tract. The upper GI tract was grossly normal. The major papilla was congested. The ventral pancreatic duct was inadvertently cannulated with the short-nosed traction sphincterotome and 0.035 in Acrobat 2 guidewire without any complications. The wire was left in place to aid in biliary cannulation and later place a prophylactic pancreatic stent. The bile duct was deeply cannulated with the short-nosed traction sphincterotome and a second 0.035 in Acrobat 2 guidewire. Contrast was injected. I personally interpreted the bile duct images. Contrast extended to the entire biliary tree. The biliary orifice was stenotic. This appeared benign. The lower third of the main bile duct and middle third of the main bile duct contained filling defect(s) thought to be a stone and sludge. Biliary sphincterotomy was made with a monofilament Fusion OMNI sphincterotome using ERBE electrocautery. There was no post-sphincterotomy bleeding. To discover objects, the biliary tree was swept with an 8.5 to 15 mm balloon starting at the bifurcation. Dark sludge was swept from the duct. A few darkly pigmented stones were removed. No stones remained on a final cholangiogram. One 10 Fr by 8 cm biliary stent with a single external flap and a single internal flap was placed 8 cm into the common bile duct. Bile flowed through the stent. The stent was in good position. One 5 Fr by 7 cm pancreatic stent with a 3/4 external pigtail and no internal flaps was placed 7 cm into the ventral pancreatic duct. Clear fluid flowed through the stent. The stent was in good position. The endoscope was withdrawn from the patient. The total fluoroscopy exposure time was 1 minute and 4 seconds. Indomethacin 100 mg was given via suppository to decrease the risk of post-ERCP pancreatitis (PEP). Impression: - Choledocholithiasis was found. Complete removal was accomplished by biliary sphincterotomy and balloon extraction. - One biliary stent was placed into the common bile duct. - One pancreatic stent was placed into the ventral pancreatic duct. - Indomethacin given to decrease risk of post-ERCP pancreatitis. Recommendation: - Avoid aspirin and nonsteroidal anti-inflammatory medicines for 5 days. - Clear liquid diet today. - Repeat ERCP in 6 weeks to remove stent. -Cholecystectomy as previously planned -Repeat liver associated enzymes tomorrow Francisco Bermudez D.O. Francisco Bermudez DO 04/02/2020 3:08:17 PM This report has been signed electronically. Note Initiated On: 04/02/2020 2:25 PM Number of Addenda: 0 I attest to the content of the Intraoperative Record and orders documented therein, exceptions below {[id number]}
--- NOTE | 2020-04-02 15:10 | Post Operative Brief Note ---
Immediate Post Op Note v1 Date of Surgery April 02, 2020 Pre & Post Diagnosis Operation Date: 04/02/20 14:10 Pre-Op Diagnosis: CHOLEDOCHOLITHIASIS Post-Op Diagnosis: CHOLEDOCHOLITHIASIS Operation Date: 04/03/20 11:00 <No data on this case meets the specified criteria> I identified the patient and participated in the time-out.: Yes Procedure Operation Date: 04/02/20 14:10 Actual Procedures p Endoscopic Retrograde Cholangiopancreatography(Not Applicable) - Francisco Bermudez DO Operation Date: 04/03/20 11:00 <No data on this case meets the specified criteria> Surgeon Francisco Bermudez DO Supply Aide none Estimated Blood Loss 0 Findings Consistent with Post-Op Diagnosis
--- NOTE | 2020-04-02 15:35 | Fluoroscopy Report ---
[place] ERCP biliary ductal CLINICAL HISTORY: EXPLORE DUCTS COMPARISON STUDY: MRCP 04/01/2020. FLUOROSCOPY TIME: 1 minute and 4 seconds. FINDINGS: 39 fluoroscopic spot images of the right upper quadrant were submitted. The ampulla was can nulated and contrast was injected the common bile duct. Small filling defects within the common bile duct consistent with choledocholithiasis. This is followed by balloon sweep and placement of common b ile duct stent which appears in good position. IMPRESSION: Fluoroscopy provided for ERCP as described above. ACT 112: Negative or not required by law. Electronically signed by: Brayden Mary M.D. 04/02/2020 3:34 PM
--- NOTE | 2020-04-02 15:46 | Anesthesiology Progress Note ---
Date of Service April 02, 2020 Anesthesia Post Procedure Vital Signs Vital Signs: Temp Pulse Pulse Resp BP Pulse Ox 04/02/20 15:45 36.8 C 64 13 140/81 95 04/02/20 15:35 67 10 L 133/85 98 04/02/20 15:25 65 12 136/79 97 04/02/20 15:15 69 10 L 131/88 100 04/02/20 15:05 36.6 C 77 12 124/72 98 04/02/20 12:57 36.9 C 50 L 16 130/74 98 04/02/20 07:08 36.6 C 42 L 18 124/71 96 04/01/20 22:45 36.6 C 47 L 16 132/81 96 04/01/20 17:42 97 04/01/20 15:56 37.0 C 57 L 14 154/95 H 97 04/01/20 15:55 99 Pain Intensity Right Upper Abdomen: Pain Intensity: 2 Transfer of Care Handoff Completed per policy Notes Mental Status: alert / awake / arousable Patient Amnestic to Procedure: Yes Nausea / Vomiting: adequately controlled Pain: adequately controlled Airway Patency, RR, SpO2: stable & adequate BP & HR: stable & adequate Hydration State: stable & adequate Anesthetic Complications: no major complications apparent and Pt Satisfied with anesthetic care
[2020-04-02] MEDS: ONDANSETRON INJ 2 MG/ML 2 ML VIAL IV PRN (15:59)
[2020-04-03] MEDS: PIPERACILLIN/TAZOBACTAM 3.375 GM in DEXTROSE 5% 100 ML IV SCH ×3 (02:56→18:54)
[2020-04-03 07:29] LABS: Albumin Level 2.9 gm/dl (3.4-5.0); Bilirubin Direct 4.4 mg/dl (0-0.2); Bilirubin,Total 6.5 mg/dl (0.2-1); Total Protein 6.2 gm/dl (6.4-8.2)
[2020-04-03] MEDS: PANTOprazole 40 MG TAB PO SCH (07:55)
[2020-04-03] MEDS: SODIUM CHLORIDE 0.9% 1000ML 1,000 ML IV SCH (07:56)
[2020-04-03] MEDS ORDERED: ATROPINE SULFATE 0.1 MG/ML 10ML SYR IV PRN (08:05)
[2020-04-03] MEDS ORDERED: ePHEDrine sulfate 50 MG/ML AMP IV PRN (08:05)
[2020-04-03] MEDS ORDERED: ONDANSETRON INJ 2 MG/ML 2 ML VIAL IV PRN (08:05)
--- NOTE | 2020-04-03 08:05 | Anesthesiology Consultation ---
Date of Service April 03, 2020 Assessment & Plan (1) Encounter for pre-operative examination: History Surgery Operation Date: 04/02/20 14:10 Proposed Procedures p Endoscopic Retrograde Cholangiopancreatogram - Francisco Bermudez DO Operation Date: 04/03/20 11:00 Proposed Procedures p Laparoscopic Cholecystectomy, Possible Cholangiogram - Fitz Savage, Height/Weight Height: 5 ft 8 in Weight: 79.832 kg Allergies Allergy/AdvReac Type Severity Reaction Status Date / Time No Known Allergies Allergy Unverified 04/01/20 11:21 Medications Home Medications Medication Instructions Recorded Confirmed Last Taken bismuth subsalicylate 2 tab PO QID PRN 04/01/20 04/01/20 04/01/20 [Pepto-Bismol] calcium carbonate-simethicone 2 tab PO DAILY PRN 04/01/20 04/01/20 04/01/20 [Tums Anti-Gas/Antacid] diphenhydramine HCl [Benadryl] 25 mg PO HS PRN 04/01/20 04/01/20 Unknown omeprazole magnesium [Prilosec OTC] 20 mg PO DAILY 04/01/20 04/01/20 04/01/20 Active Medications Generic Name Dose Route Start Last Admin Trade Name Freq PRN Reason Stop Dose Admin Piperacillin Sod/Tazobactam 115 mls @ 28.75 mls/hr 04/01/20 18:00 04/03/20 06:56 Sod 3.375 gm/ Dextrose IV 04/11/20 17:59 Infused Q8H TIMOTEO Infusion Protocol Sodium Chloride 1,000 mls @ 125 mls/hr 04/01/20 20:15 04/03/20 07:56 Nss 1000ml IV 05/01/20 20:14 125 mls/hr .Q8H TIMOTEO Administration Ondansetron HCl 4 mg 04/01/20 15:55 04/02/20 15:59 Ondansetron Inj 2 Mg/Ml 2 Ml Vial IV 05/01/20 15:54 4 mg Q6H PRN Administration Nausea Pantoprazole Sodium 40 mg 04/02/20 09:00 04/03/20 07:55 Pantoprazole 40 Mg Tab PO 05/02/20 08:59 Not Given DAILY TIMOTEO NPO Date Last Intake of Fluids: 04/02/20 Time Last Intake of Fluids: 23:45 Last Intake of Fluids Comment: sips of water Date Last Intake of Solids: 04/02/20 Time Last Intake of Solids: 10:00 Past Medical History Medical History (Updated 04/03/20 @ 08:04 by Wilma Colon MD) Choledocholithiasis Cholelithiasis Elevated LFTs GERD (gastroesophageal reflux disease) Jaundice Left forearm fracture Past Family History Family History Mother Breast cancer Past Surgical History Surgical History (Updated 04/03/20 @ 08:04 by Wilma Colon MD) H/O eye surgery History of ERCP Social History Smoking Status: Never smoker Hx Alcohol Use: No alcohol intake frequency: a few times a week Hx Substance Use: No Physical Exam Vital Signs Last Vital Signs Temp 36.8 C 04/03/20 07:27 Pulse 48 L 04/03/20 07:27 Resp 16 04/03/20 07:27 BP 116/70 04/03/20 07:27 Pulse Ox 97 04/03/20 07:27 Testing Laboratory Results 04/02/20 06:01 04/02/20 06:01 PT 9.3 Seconds (9.0-12.0) 04/01/20 11:10 INR 0.9 (0.9-1.1) 04/01/20 11:10 Urine Color Dark Yellow 04/01/20 11:05 Urine Appearance Clear (Clear) 04/01/20 11:05 Urine pH 5.5 (4.5-7.5) 04/01/20 11:05 Ur Specific [place] 1.013 (1.000-1.030) 04/01/20 11:05 Urine Protein Negative (Negative) 04/01/20 11:05 Urine Glucose (UA) Negative (Negative) 04/01/20 11:05 Urine Ketones Negative (Negative) 04/01/20 11:05 Urine Nitrite Negative (Negative) 04/01/20 11:05 Ur Leukocyte Esterase Negative (Negative) 04/01/20 11:05
[2020-04-03] MEDS ORDERED: fentaNYL citrate 100 MCG/2 ML VIAL ONE ×2 (08:06→11:56)
[2020-04-03] MEDS ORDERED: MIDAZOLAM HCL 1 MG/ML 2ML VIAL ONE (08:06)
[2020-04-03] MEDS ORDERED: ACETAMINOPHEN 1000 MG/100 ML IV IV ONE (08:11)
--- NOTE | 2020-04-03 08:40 | Anesthesiology Progress Note ---
Date of Service April 03, 2020 Anesthesia Post Procedure Vital Signs Vital Signs: Temp Pulse Pulse Pulse Resp BP Pulse Ox 04/03/20 07:27 36.8 C 48 L 16 116/70 97 04/03/20 03:20 36.9 C 54 L 19 142/88 H 95 04/02/20 21:52 36.7 C 45 L 16 125/77 96 04/02/20 18:51 36.4 C L 51 L 18 146/99 H 96 04/02/20 17:55 36.7 C 54 L 18 142/79 H 97 04/02/20 16:54 36.7 C 57 L 18 142/79 H 97 04/02/20 16:22 36.6 C 60 18 143/89 H 98 04/02/20 15:51 36.7 C 66 14 135/85 98 04/02/20 15:45 36.8 C 64 13 140/81 95 04/02/20 15:35 67 10 L 133/85 98 04/02/20 15:25 65 12 136/79 97 04/02/20 15:15 69 10 L 131/88 100 04/02/20 15:05 36.6 C 77 12 124/72 98 04/02/20 12:57 36.9 C 50 L 16 130/74 98 Pain Intensity Right Upper Abdomen: Pain Intensity: 2
[2020-04-03] MEDS ORDERED: INFLUENZA ADMINISTRATION CHARGE ONE (09:00)
[2020-04-03] MEDS ORDERED: INFLUENZA VIRUS QUAD VACCINE 0.5 ML SYR IM ONE (09:00)
[2020-04-03] MEDS ORDERED: BUPIVACAINE/EPINEPHRINE 0.5% MPF 1:200,000 30 ML VIAL ONE (10:40)
--- NOTE | 2020-04-03 11:05 | Gastroenterology Progress Note ---
Date of Service April 03, 2020 Assessment & Plan (1) Elevated LFTs: Choledocholithiasis, likely chronic cholecystitis Cholecystectomy as planned by general surgery Follow LFTs as OP to resolution or if do not return to baseline then OP referral to GI/hepatology. Repeat ERCP in 6 to 8 weeks for stent removal. Our office will contact him to arrange. Diet per surgery. No GI contraindication to eating a regular consistency diet - but undergoing surgery today. Avoid use of non-steroidals and anticoagulation for 5 days GI will sign off. Please notify us if new issues. Admission and Anticipated Discharge Date Admission Date: April 03, 2020 Supervising Physician Co-Signing Physician Notes I have discussed the management with SUSAN Link and agree with her plan of care. Subjective 39 yo male Post procedure day #1 from ERCP with sphincterotomy and stone removal. Placement of pancreatic and bile duct stents Lap choley planned for today. Patient has no pain or discomfort. LFTs remain elevated. Review of Systems Review of Systems: ROS: Gen: Denies weakness, fevers, weight loss Eyes: No eye redness, or pain, no recent vision changes Resp: No SOB, no cough Cardio: No palpitations/irregular beats, no chest pain GI: See HPI, otherwise (-). : Denies pain on urination Skin: No jaundice, itching or new rashes Physical Exam Constitutional: WD/WN, vitals as above Eyes: PERRL ENMT: external ear and nose normal, oropharynx normal Neck: trachea midline, no thyromegaly Respiratory: normal respiratory effort, lungs clear to auscultation Cardiovascular: RRR, no murmur, no edema Gastrointestinal (Abdomen): normal bowel sounds, soft, nontender, no hepatosplenomegaly Neurologic: CN's II-XI intact bilaterally Psychiatric: A+Ox3, euthymic affect Lymphatic: no cervical or axillary lymphadenopathy Results & Data ([facility]) Vital Signs (Past 12 Hours) Vital Signs Temp Pulse Resp BP Pulse Ox 04/03/20 07:27 36.8 C 48 L 16 116/70 97 04/03/20 03:20 36.9 C 54 L 19 142/88 H 95 Laboratory Results T bili 6.5, D Bili 0.44, AST 327, ALT 641, Alk Phos 267.
--- NOTE | 2020-04-03 11:13 | History & Physical Bridge Note ---
Date of Service April 03, 2020 History & Physical Bridge Note I have examined the patient, reviewed the History & Physical and in the interval since the performance of the History & Physical I have noted the following changes of clinical significance: no changes noted pt seen. d/w GI regarding ERCP findings....LFT's up more today but likely secondary to instrumentation/stents/swelling. will not plan cholangiogram today as it wound not change current treatment plans. he does show me a small umbilical hernia he would like repaired as well which we will accomodate.
[2020-04-03] MEDS ORDERED: LIDOCAINE HCL 2% 2 ML VIAL/AMP(20MG/ML) INFIL ONE (12:01)
[2020-04-03] MEDS ORDERED: DEXAMETHASONE SOD INJ 4 MG/ML VIAL ONE (12:01)
[2020-04-03] MEDS ORDERED: ONDANSETRON INJ 2 MG/ML 2 ML VIAL ONE (12:01)
[2020-04-03] MEDS ORDERED: PROPOFOL IV EMULSION 10 MG/ML 20 ML VIAL IV ONE (12:01)
[2020-04-03] MEDS ORDERED: ROCURONIUM BROMIDE 10 MG/ML 5 ML VIAL IV ONE (12:01)
[2020-04-03] MEDS ORDERED: LABETALOL HCL IV 5 MG/ML 20ML IV ONE (12:01)
[2020-04-03] MEDS ORDERED: NEOSTIGMINE METHYLSULFATE 5 MG/5 ML SYR ONE (12:18)
[2020-04-03] MEDS ORDERED: GLYCOPYRROLATE 0.2 MG/ML VIAL ONE (12:18)
--- NOTE | 2020-04-03 12:47 | Operative Report ---
PG Post Operative Report Pre & Post Diagnosis Operation Date: 04/02/20 14:10 Pre-Op Diagnosis: CHOLEDOCHOLITHIASIS Post-Op Diagnosis: CHOLEDOCHOLITHIASIS Operation Date: 04/03/20 11:00 Pre-Op Diagnosis: CHOLEDOCHOLITHIASIS;umbilical hernia; Post-Op Diagnosis: CHOLEDOCHOLITHIASIS;umbilical hernia I identified the patient and participated in the time-out.: Yes Procedure Operation Date: 04/02/20 14:10 Actual Procedures p Endoscopic Retrograde Cholangiopancreatography(Not Applicable) - Francisco Bermudez DO Operation Date: 04/03/20 11:00 Actual Procedures p Laparoscopic Cholecystectomy, Repair of Umbilical Hernia - Fitz Savage DO Surgeon Fitz Savage DO [employer] micaela Graves Estimated Blood Loss 0 Findings Consistent with Post-Op Diagnosis Specimens gallbladder Description of Procedure After informed consent was obtained the patient was taken to the operating room and placed in the supine position. After successful intubation the abdomen was sterilely prepped and draped in usual fashion. A periumbilical incision was made with an 11 blade scalpel and carried down through the soft tissue using electrocautery. I readily encountered the small umbilical hernia with hernia sac. I opened the hernia sac and used two #0 Vicryl stay sutures to place on the defect on either side. I had to slightly extend the fascial defect superiorly in order to be large enough to accept the 12 mm Prajapati trocar. A finger sweep was performed and a 12 mm Prajapati trocar was placed. The abdomen was insufflated to 18 mmHg. The laparoscope was inserted and the abdomen was examined in 360. No gross abnormalities were identified. A subxiphoid 5 mm port and 2 right upper quadrant 5 mm ports were placed under direct vision. The patient was placed in a reverse Trendelenburg position and slightly airplaned to the left. The gallbladder was grasped and elevated superiorly and laterally. A [place] dissector was used to take down adhesions around the neck of the gallbladder. The cystic duct was identified and skeletonized. It was clipped twice proximally and once distally and transected using a laparoscopic scissor. In similar fashion the cystic artery was identified and skeletonized clipped and divided. The gallbladder was removed from the gallbladder fossa with electrocautery. It was placed into an Endo Catch bag. Thorough irrigation was performed. At the end of the procedure there was adequate hemostasis and no evidence of any bile leaks. A final look around the abdomen showed no other abnormalities. The gallbladder and trochars were all removed and the abdomen was desufflated. The fascia of the umbilical hernia was closed using 0 Vicryl in simple interrupted fashion. The umbilical stalk was reattached the fascia also using 0 Vicryl. All the wounds were irrigated and closed using 4-0 Monocryl. Marcaine was injected around them for postoperative analgesia and skin glue used as a dressing. The patient was awakened, extubated and transferred to recovery in stable condition. My physician's miller head assistant wet process was present throughout the entire case... helped with prepping the patient. With exposure for trocar placement, as well as retracted the gallbladder throughout the case and also assisted with wound closure and dressing placement. I attest to the content of the Intraoperative Record and any orders documented therein. Any exceptions are noted below.
[2020-04-03] MEDS: fentaNYL citrate 100 MCG/2 ML VIAL IV PRN ×4 (12:58→13:13)
[2020-04-03] MEDS: HYDROmorphone INJ 1 MG/ML SYRINGE IV PRN ×4 (13:20→13:35)
--- NOTE | 2020-04-03 13:47 | Anesthesiology Progress Note ---
Date of Service April 03, 2020 Anesthesia Post Procedure Vital Signs Vital Signs: Temp Pulse Pulse Resp BP Pulse Ox 04/03/20 13:35 56 L 22 134/80 96 04/03/20 13:25 53 L 12 145/85 H 97 04/03/20 13:15 52 L 17 150/90 H 97 04/03/20 13:05 58 L 24 148/90 H 96 04/03/20 12:55 59 L 19 155/92 H 100 04/03/20 12:47 36.9 C 66 10 L 144/87 H 99 04/03/20 11:00 36.7 C 49 L 18 138/60 99 04/03/20 07:27 36.8 C 48 L 16 116/70 97 04/03/20 03:20 36.9 C 54 L 19 142/88 H 95 04/02/20 21:52 36.7 C 45 L 16 125/77 96 04/02/20 18:51 36.4 C L 51 L 18 146/99 H 96 04/02/20 17:55 36.7 C 54 L 18 142/79 H 97 04/02/20 16:54 36.7 C 57 L 18 142/79 H 97 04/02/20 16:22 36.6 C 60 18 143/89 H 98 04/02/20 15:51 36.7 C 66 14 135/85 98 04/02/20 15:45 36.8 C 64 13 140/81 95 04/02/20 15:35 67 10 L 133/85 98 04/02/20 15:25 65 12 136/79 97 04/02/20 15:15 69 10 L 131/88 100 04/02/20 15:05 36.6 C 77 12 124/72 98 Pain Intensity Right Upper Abdomen: Pain Intensity: 2 Abdomen: Pain Intensity: 4 Transfer of Care Handoff Completed per policy Notes Mental Status: alert / awake / arousable and participated in evaluation Patient Amnestic to Procedure: Yes Nausea / Vomiting: adequately controlled Pain: adequately controlled Airway Patency, RR, SpO2: stable & adequate BP & HR: stable & adequate Hydration State: stable & adequate Anesthetic Complications: no major complications apparent
[2020-04-03] MEDS ORDERED: MoRPHine SULFATE 2 MG/ML CARP IV PRN (14:09)
[2020-04-03] MEDS ORDERED: MoRPHine SULFATE 4 MG/ML 1 ML CARP\\VIAL IV PRN (14:09)
[2020-04-03] MEDS: LACTATED RINGER'S 1,000 ML IV SCH ×2 (19:26→22:59)
--- NOTE | 2020-04-03 22:35 | Hospitalist Progress Note ---
Date of Service April 03, 2020 Assessment & Plan (1) Cholelithiasis: Elevated LFTs: Mr. Coffey is a 39 year old male without significant past medical history who presented to [facility] ER today complaining of Nausea, Pale Stools, Dark Urine, Diffuse Pruritus, Jaundice, Grossly Abnormal LFT's (Total Bilirubin 3.9 mg/dl, ALT 590 U/L, AST 220 U/L, Alk Phos 369 U/L) and he has evidence of Gall Bladder Disease (sludge and small stones, mildly distended gall bladder, wall thickness is at the upper limit of normal -- but it does not appear to be acutely inflamed). Suspect he may have had transient biliary obstruction / ? passage of a gall stone leading to his current symptoms. He is being admitted to observation status for further evaluation and treatment. Recommend the following: -- Patient will remain NPO for now. -Abnormal MRCP. -Completed ERCP, will have cholecystectomy later today. -Pain appears better controlled Jaundice: -- He has faint scleral icterus, pruritus, acholic stools, and dark urine consistent with hyperbilirubinemia. -- secondary to first problem. will monitor. (2) Jaundice: Admission and Anticipated Discharge Date Admission Date: April 03, 2020 Subjective Patient reports feeling well. He has no complaints. Review of Systems Review of Systems: All systems reviewed & are unremarkable except as noted in HPI & below Physical Exam Constitutional: WD/WN, vitals as above Eyes: PERRL, conjunctivae normal, anicteric sclerae ENMT: external ear and nose normal, oropharynx normal Neck: trachea midline, no thyromegaly Respiratory: normal respiratory effort, lungs clear to auscultation Cardiovascular: RRR, no murmur, no edema Gastrointestinal (Abdomen): normal bowel sounds, soft, nontender, no hepatosplenomegaly Musculoskeletal: no cyanosis or clubbing, extremities motor strength 5/5 Skin: no rashes, warm and dry Neurologic: PERRL, EOMI, accommodation nl, no face palsy, no dysarthria Psychiatric: A+Ox3, euthymic affect Results & Data Results & Data ([facility]) Vital Signs (Past 12 Hours) Vital Signs Temp Pulse Pulse Resp BP Pulse Ox 04/03/20 21:05 48 L 18 117/63 95 04/03/20 17:38 37 C 67 16 101/65 96 04/03/20 16:12 36.3 C L 53 L 16 126/70 96 04/03/20 15:11 36.6 C 57 L 16 123/75 95 04/03/20 14:42 36.6 C 57 L 16 133/75 94 04/03/20 14:32 36.6 C 54 L 16 148/84 H 96 04/03/20 13:55 37.0 C 60 22 146/82 H 97 04/03/20 13:45 54 L 13 145/85 H 95 04/03/20 13:35 56 L 22 134/80 96 04/03/20 13:25 53 L 12 145/85 H 97 04/03/20 13:15 52 L 17 150/90 H 97 04/03/20 13:05 58 L 24 148/90 H 96 04/03/20 12:55 59 L 19 155/92 H 100 04/03/20 12:47 36.9 C 66 10 L 144/87 H 99 04/03/20 11:00 36.7 C 49 L 18 138/60 99 PG Care Time/CCT Total # of Minutes Spent Total Time Spent with Patient: Total time spent is greater than 50% in coordination of care (as documented) at patient's floor/unit and/or counseling patient: Coding Level of Care Code 57546 Subseq Hosp Care Lvl 2 Diagnoses Cholelithiasis K80.81 Biliary obstruction: with biliary obstruction Cholelithiasis location: other site Jaundice R17 Time Spent (min) 25 (1) Cholelithiasis Biliary obstruction: with biliary obstruction Cholelithiasis location: other site Qualified Code(s): K80.81 - Other cholelithiasis with obstruction
[2020-04-04] MEDS: PIPERACILLIN/TAZOBACTAM 3.375 GM in DEXTROSE 5% 100 ML IV SCH ×2 (01:08→09:07)
[2020-04-04 06:33] LABS: Hemoglobin 11.1 g/dL (14.0-18.0); Mean Corpuscular Hemoglobin 30.2 pg (25-34); Mean Corpuscular Hgb Conc 34.7 g/dL (32-36); Mean Platelet Volume 10.7 fL (7.4-10.4); Platelet Count 264 K/uL (130-400); RDW Coefficient of Variation 12.9 % (11.5-14.5); RDW Standard Deviation 41.5 fL (36.4-46.3); Red Blood Count 3.68 M/uL (4.7-6.1); White Blood Count 12.19 K/uL (4.8-10.8)
[2020-04-04 06:45] LABS: Albumin Level 2.9 gm/dl (3.4-5.0); BUN Creatinine Ratio 7.6 (10-20); Bilirubin Direct 4.7 mg/dl (0-0.2); Creatinine Clr Calc Pharmacy 88.8 ml/min; Est GFR (African American) 100.1; Est GFR (Non-African American) 86.4; Potassium 3.9 mmol/L (3.5-5.1)
[2020-04-04 07:09] LABS: Bilirubin,Total 6.4 mg/dl (0.2-1); Total Protein 5.9 gm/dl (6.4-8.2)
[2020-04-04] MEDS ORDERED: diphenhydrAMINE Capsule 25 MG CAP PO ONE (08:10)
[2020-04-04] MEDS: LACTATED RINGER'S 1,000 ML IV SCH ×2 (08:41→19:15)
[2020-04-04] MEDS: PANTOprazole 40 MG TAB PO SCH (08:42)
[2020-04-04] MEDS ORDERED: POLYETHYLENE (MIRALAX) 17 GM PACK PO ONE (09:06)
--- NOTE | 2020-04-04 09:11 | Surgery Progress Note ---
Date of Service April 04, 2020 Assessment & Plan (1) Hx laparoscopic cholecystectomy: Postop day #1. Clinically doing as expected LFTs are still elevated. Will defer to GI but will need repeated as an outpatient. From my standpoint he could go home today but I will leave this to the primary service. We discussed his postoperative instructions. He will need to follow- up with me in 7 to 10 days. Admission and Anticipated Discharge Date Admission Date: April 03, 2020 Subjective Patient feeling reasonably okay this morning. Had a syncopal episode last night while in the toilet but that has since resolved. His pain is manageable. He is sitting at bedside eating a liquid breakfast without difficulty. Physical Exam Physical Exam: Alert and oriented. Appears comfortable Abdomen is soft with expected tenderness Results & Data ([facility]) Vital Signs (Past 12 Hours) Vital Signs Temp Pulse Resp BP Pulse Ox 04/04/20 07:15 36.5 C 50 L 15 113/62 96 04/04/20 04:00 36.8 C 60 14 114/61 95 PG Care Time/CCT Total # of Minutes Spent Total Time Spent with Patient: Total time spent is greater than 50% in coordination of care (as documented) at patient's floor/unit and/or counseling patient: Coding Level of Care Code None Diagnoses Hx laparoscopic cholecystectomy Z90.49
[2020-04-04] MEDS: HYDROCODONE/ACETAMOPHEN 5/325MG TAB PO PRN ×3 (09:46→20:17)
--- NOTE | 2020-04-04 11:26 | Gastroenterology Progress Note ---
Date of Service April 04, 2020 Assessment & Plan (1) Elevated LFTs: Post procedure day #2 from ERCP for choledocholithiasis. PO Day #1 from lap choley. Bump in transaminases today may be secondary to brief decrease in blood supply to liver during surgery or syncopal episode. Should follow LFTs in one week, then, if higher refer to OP GI, if lower the follow approx monthly to resolution. No GI contraindication to discharge. GI will sign off. Please notify us if new issues. Admission and Anticipated Discharge Date Admission Date: April 03, 2020 Supervising Physician Co-Signing Physician Notes I have seen and discussed the management with SUSAN Link. No acute complaints of abdominal pain. Tolerated cream of wheat. Passing gas. PE - no scleral icterus, CV- rrr no mrg, Pulm- Ctab, Abd - soft nt nd +bs Labs reviewed- bump in lfts Suspect a mild hypotensive episode causing bump in lft's, would trend for now. Subjective Brief syncopal episode last evening during toileting. Got light headed when had his blood drawn this morning. Has a hx of feeling faint during blood draws. Pt sitting up in chair in bed. Some abd bloating. Passing flatus. Mild upper abdomen discomfort. Verified no recent episodes of viral type symptoms (no sore throat or headaches, no generalized rashes or joint pain, no fevers). Review of Systems Review of Systems: ROS: Gen: Feels tired, No fevers/chills Eyes: No yellow eyes. No eye redness, or pain, no recent vision changes Resp: No SOB, no cough Cardio: No palpitations/irregular beats, no chest pain GI: See HPI, otherwise (-). : Denies pain on urination Skin: No jaundice, itching or new rashes. No yellow skin. Physical Exam Constitutional: WD/WN, vitals as above Eyes: PERRL ENMT: external ear and nose normal, oropharynx normal Neck: trachea midline, no thyromegaly Respiratory: normal respiratory effort, lungs clear to auscultation Cardiovascular: RRR, no murmur, no edema Gastrointestinal (Abdomen): Inspection/Auscultation: abdomen normal to inspection; abdomen not distended Percussion/Palpation: abdomen soft mild, diffuse upper abdomen tenderness Neurologic: CN's II-XI intact bilaterally Psychiatric: A+Ox3, euthymic affect Lymphatic: no cervical or axillary lymphadenopathy Results & Data ([facility]) Vital Signs (Past 12 Hours) Vital Signs Temp Pulse Resp BP Pulse Ox 04/04/20 07:15 36.5 C 50 L 15 113/62 96 04/04/20 04:00 36.8 C 60 14 114/61 95 Laboratory Results WBC 8.9 LFTs: T Bili 6.4, Max of 6.5 yesterday; AST 327->482; ALT 641->840; Alk Phos 235->369.
--- NOTE | 2020-04-04 21:12 | Hospitalist Progress Note ---
Date of Service April 04, 2020 Assessment & Plan (1) Cholelithiasis: Elevated LFTs: Mr. Coffey is a 39 year old male without significant past medical history who presented to [facility] ER today complaining of Nausea, Pale Stools, Dark Urine, Diffuse Pruritus, Jaundice, Grossly Abnormal LFT's (Total Bilirubin 3.9 mg/dl, ALT 590 U/L, AST 220 U/L, Alk Phos 369 U/L) and he has evidence of Gall Bladder Disease (sludge and small stones, mildly distended gall bladder, wall thickness is at the upper limit of normal -- but it does not appear to be acutely inflamed). Suspect he may have had transient biliary obstruction / ? passage of a gall stone leading to his current symptoms. He is being admitted to observation status for further evaluation and treatment. S/P ERCP and cholecystectomy. Patient feels somewhat bloated today. Not feeling strong enough for discharge. Will monitor. Will repeat Labs as LFTs remain elevated. -Pain appears better controlled Jaundice: -- He has faint scleral icterus, pruritus, acholic stools, and dark urine consistent with hyperbilirubinemia. -- secondary to first problem. will monitor. (2) Jaundice: Admission and Anticipated Discharge Date Admission Date: April 03, 2020 Subjective 39 yo male reports feeling bloated today. He has no new complaints today. Review of Systems Review of Systems: All systems reviewed & are unremarkable except as noted in HPI & below Physical Exam Constitutional: WD/WN, vitals as above Eyes: PERRL, conjunctivae normal, anicteric sclerae ENMT: external ear and nose normal, oropharynx normal Neck: trachea midline, no thyromegaly Respiratory: normal respiratory effort, lungs clear to auscultation Cardiovascular: RRR, no murmur, no edema Gastrointestinal (Abdomen): normal bowel sounds, soft, nontender, no hepatosplenomegaly Musculoskeletal: no cyanosis or clubbing, extremities motor strength 5/5 Skin: no rashes, warm and dry Neurologic: PERRL, EOMI, accommodation nl, no face palsy, no dysarthria Psychiatric: A+Ox3, euthymic affect Results & Data Results & Data ([facility]) Vital Signs (Past 12 Hours) Vital Signs Temp Pulse Resp BP Pulse Ox 04/04/20 16:06 36.5 C 51 L 16 103/58 L 95 04/04/20 11:42 36.7 C 51 L 16 100/55 L 97 PG Care Time/CCT Total # of Minutes Spent Total Time Spent with Patient: Total time spent is greater than 50% in coordination of care (as documented) at patient's floor/unit and/or counseling patient: Coding Level of Care Code 14713 Subseq Hosp Care Lvl 2 Diagnoses Cholelithiasis K80.81 Biliary obstruction: with biliary obstruction Cholelithiasis location: other site Jaundice R17 Time Spent (min) 25 (1) Cholelithiasis Biliary obstruction: with biliary obstruction Cholelithiasis location: other site Qualified Code(s): K80.81 - Other cholelithiasis with obstruction
[2020-04-05] MEDS: HYDROCODONE/ACETAMOPHEN 5/325MG TAB PO PRN ×2 (03:18→08:07)
[2020-04-05] MEDS: LACTATED RINGER'S 1,000 ML IV SCH ×3 (05:02→23:49)
[2020-04-05] MEDS: PANTOprazole 40 MG TAB PO SCH (08:06)
[2020-04-05 08:40] LABS: Basophils # (auto) 0.05 K/uL (0-0.2); Basophils % (auto) 0.6 %; Eosinophils # (auto) 0.13 K/uL (0-0.5); Eosinophils % (auto) 1.5 %; Hematocrit (blood only) 31.3 % (42-52); Hemoglobin 10.6 g/dL (14.0-18.0); Immature Granulocytes # (auto) 0.03 K/uL (0.00-0.02); Immature Granulocytes % (auto) 0.4 %; Lymphocytes # (auto) 2.37 K/uL (1.2-3.4); Mean Corpuscular Hemoglobin 30.6 pg (25-34); Mean Corpuscular Hgb Conc 33.9 g/dL (32-36); Mean Corpuscular Volume 90.5 fL (80-100); Mean Platelet Volume 11.4 fL (7.4-10.4); Monocytes # (auto) 0.67 K/uL (0.11-0.59); Monocytes % (auto) 7.9 %; Neutrophils # (auto) 5.21 K/uL (1.4-6.5); Neutrophils % (auto) 61.6 %; Platelet Count 240 K/uL (130-400); RDW Coefficient of Variation 13.6 % (11.5-14.5); RDW Standard Deviation 44.9 fL (36.4-46.3); Red Blood Count 3.46 M/uL (4.7-6.1); White Blood Count 8.46 K/uL (4.8-10.8)
--- NOTE | 2020-04-05 08:53 | Gastroenterology Progress Note ---
Date of Service April 05, 2020 Assessment & Plan (1) Elevated LFTs: Post procedure day #3 from ERCP for choledocholithiasis. PO Day #2 from lap choley. Bili (stable for prior day) and transaminases (increasing from prior day) all still significantly elevated yesterday. Will check LFTs, if still high then EUS/ERCP today to change the stents. If significantly improved then may defer EUS/ERCP and recheck LFTs in one week and follow to resolution. Admission and Anticipated Discharge Date Admission Date: April 03, 2020 Supervising Physician Co-Signing Physician Notes I saw and evaluated the patient. The patient has a significant increase in his liver enzymes and persistent discomfort. Given this I wonder if the biliary raymundo nt that was put in earlier this week has occluded with debris from his recent cholecystectomy. I would suggest that we proceed with ERCP and stent exchange today, we have discussed the risks to include bleeding, infection, perforation, pancreatitis and failed biliary cannulation. Subjective 39 yo male feeling better today, still some abdominal gassiness/distention. Urine dark last evening, light this morning. Does no appear jaundiced/icterus. Hemodynamically stable. No nausea/vomiting. Has discomfort across the RUQ and the incision. Transaminases increasing yesterday. Ordered/drawn urgently this morning. Results pendig. Review of Systems Review of Systems: ROS: Gen: + fatigue, though slept well last night and feels "better," denies weakness, fevers, weight loss Eyes: No eye redness, or pain, no recent vision changes Resp: No SOB, no cough Cardio: No palpitations/irregular beats, no chest pain GI: As per HPI, otherwise (-) : Denies pain on urination Skin: No jaundice, itching or new rashes Physical Exam Constitutional: WD/WN, vitals as above Eyes: PERRL ENMT: external ear and nose normal, oropharynx normal Neck: trachea midline, no thyromegaly Respiratory: normal respiratory effort, lungs clear to auscultation Cardiovascular: RRR, no murmur, no edema Gastrointestinal (Abdomen): normal bowel sounds, soft, nontender, no hepatosplenomegaly Inspection/Auscultation: abdomen normal to inspection; abdomen not distended Percussion/Palpation: abdomen soft Neurologic: CN's II-XI intact bilaterally Psychiatric: A+Ox3, euthymic affect Lymphatic: no cervical or axillary lymphadenopathy Results & Data ([facility]) Vital Signs (Past 12 Hours) Vital Signs Temp Pulse Resp BP Pulse Ox 04/05/20 07:27 36.5 C 55 L 16 124/73 96 04/04/20 22:24 36.6 C 50 L 16 130/73 97
--- NOTE | 2020-04-05 09:09 | Surgery Progress Note ---
Date of Service April 05, 2020 Assessment & Plan (1) Hx laparoscopic cholecystectomy: POD 2 lap rohit labs pending dispo per GI & medicine as above. doing ok from my standpoint.... getting ercp/stent exchange today. Dr. Car covering for weekend. Admission and Anticipated Discharge Date Admission Date: April 03, 2020 Subjective less bloated, tolerating diet Physical Exam Gastrointestinal (Abdomen): Inspection/Auscultation: + abdominal surgical in cision (clean, dry) Percussion/Palpation: abdomen soft Results & Data ([facility]) Vital Signs (Past 12 Hours) Vital Signs Temp Pulse Resp BP Pulse Ox 04/05/20 07:27 36.5 C 55 L 16 124/73 96 04/04/20 22:24 36.6 C 50 L 16 130/73 97 PG Care Time/CCT Total # of Minutes Spent Total Time Spent with Patient: Total time spent is greater than 50% in coordination of care (as documented) at patient's floor/unit and/or counseling patient: Coding Level of Care Code None Diagnoses Hx laparoscopic cholecystectomy Z90.49
[2020-04-05 09:13] LABS: BUN Creatinine Ratio 6.6 (10-20); Calcium 8.7 mg/dl (8.5-10.1); Creatinine Clr Calc Pharmacy 94.1 ml/min; Est GFR (African American) 107.3; Est GFR (Non-African American) 92.6; Potassium 3.9 mmol/L (3.5-5.1)
[2020-04-05 09:31] LABS: Albumin Globulin Ratio 0.9 (0.9-2); Bilirubin,Total 5.1 mg/dl (0.2-1); Globulin 3.3 gm/dl (2.5-4.0); Total Protein 6.3 gm/dl (6.4-8.2)
[2020-04-05] MEDS ORDERED: HYDROmorphone INJ 2 MG/ML SYR/VIAL IV PRN (11:42)
[2020-04-05] MEDS ORDERED: ePHEDrine sulfate 50 MG/ML AMP IV PRN (11:42)
[2020-04-05] MEDS ORDERED: fentaNYL citrate 100 MCG/2 ML VIAL IV PRN (11:42)
[2020-04-05] MEDS ORDERED: ONDANSETRON INJ 2 MG/ML 2 ML VIAL IV PRN (11:42)
[2020-04-05] MEDS ORDERED: ATROPINE SULFATE 0.1 MG/ML 10ML SYR IV PRN (11:42)
--- NOTE | 2020-04-05 11:42 | Anesthesiology Consultation ---
Date of Service April 05, 2020 Assessment & Plan ASA ASA2 Proposed Anesthesia Anesthesia Type: General Risk / Benefits Reviewed With: PT / POA / Parent / Guardian, Accepts Plan and Informed Consent Obtained History Surgery Operation Date: 04/02/20 14:10 Proposed Procedures p Endoscopic Retrograde Cholangiopancreatogram - Francisco Bermudez DO Operation Date: 04/03/20 11:00 Proposed Procedures p Laparoscopic Cholecystectomy, Possible Cholangiogram - Fitz Savage DO Operation Date: 04/05/20 08:55 Proposed Procedures p Endoscopic Retrograde Cholangiopancreatogram - Francisco Bermudez DO Height/Weight Height: 5 ft 8 in Weight: 79.832 kg Allergies Allergy/AdvReac Type Severity Reaction Status Date / Time No Known Allergies Allergy Unverified 04/01/20 11:21 Medications Home Medications Medication Instructions Recorded Confirmed Last Taken bismuth subsalicylate 2 tab PO QID PRN 04/01/20 04/01/20 04/01/20 [Pepto-Bismol] calcium carbonate-simethicone 2 tab PO DAILY PRN 04/01/20 04/01/20 04/01/20 [Tums Anti-Gas/Antacid] diphenhydramine HCl [Benadryl] 25 mg PO HS PRN 04/01/20 04/01/20 Unknown omeprazole magnesium [Prilosec OTC] 20 mg PO DAILY 04/01/20 04/01/20 04/01/20 hydrocodone-acetaminophen 1 - 2 tab PO .q4h- q6h PRN #12 tab 04/04/20 Unknown Active Medications Generic Name Dose Route Start Last Admin Trade Name Freq PRN Reason Stop Dose Admin Acetaminophen 650 mg 04/01/20 15:55 04/04/20 08:46 Acetaminophen 325 Mg Tab PO 05/01/20 15:54 650 mg Q4H PRN Administration pain/fever Hydrocodone Bitart/Acetaminophen 1 tab 04/03/20 14:09 04/05/20 08:07 Hydrocodone/Acetamophen 5/325mg Tab PO 04/17/20 14:08 1 tab Q4H PRN Administration Pain Hydrocodone Bitart/Acetaminophen 2 tab 04/03/20 14:09 04/04/20 13:58 Hydrocodone/Acetamophen 5/325mg Tab PO 04/17/20 14:08 2 tab Q4H PRN Administration Pain Lactated Ringer's 1,000 mls @ 100 mls/hr 04/03/20 14:09 04/05/20 06:36 Lr IV 05/03/20 14:08 100 mls/hr .Q10H TIMOTEO Infusion Morphine Sulfate 2 mg 04/03/20 14:09 04/03/20 14:48 Morphine Sulfate 2 Mg/Ml Carp IV 04/17/20 14:08 2 mg Q1H PRN Administration Pain Ondansetron HCl 4 mg 04/01/20 15:55 04/02/20 15:59 Ondansetron Inj 2 Mg/Ml 2 Ml Vial IV 05/01/20 15:54 4 mg Q6H PRN Administration Nausea Pantoprazole Sodium 40 mg 04/02/20 09:00 04/05/20 08:06 Pantoprazole 40 Mg Tab PO 05/02/20 08:59 40 mg DAILY TIMOTEO Administration NPO Date Last Intake of Fluids: 04/02/20 Time Last Intake of Fluids: 23:45 Last Intake of Fluids Comment: sips of water Date Last Intake of Solids: 04/02/20 Time Last Intake of Solids: 10:00 Past Medical History Medical History Choledocholithiasis Cholelithiasis Elevated LFTs GERD (gastroesophageal reflux disease) Jaundice Left forearm fracture Exercise / Class Metabolic Activity II 4-5 Yardwork/Stairs/Walk up hill Past Family History Family History Mother Breast cancer Past Surgical History Surgical History H/O eye surgery History of ERCP Hx laparoscopic cholecystectomy (04/03/20) Laparoscopic Cholecystectomy, Repair of Umbilical Hernia Dr. Savage 021 Past Anesthesia History No Hx of Anesthesia Complications and No Family Hx of Anesthesia Complications History of PONV No Hx of PONV and No Hx of Motion Sickness Social History Smoking Status: Never smoker Hx Alcohol Use: No alcohol intake frequency: a few times a week Hx Substance Use: No Review of Systems denies fever/cough/ colds/ chest pain/ SOB/ KARLA denies KARLA Physical Exam Vital Signs Last Vital Signs Temp 36.5 C 04/05/20 07:27 Pulse 55 L 04/05/20 07:27 Resp 16 04/05/20 07:27 BP 124/73 04/05/20 07:27 Pulse Ox 96 04/05/20 07:27 ENMT Mouth: no TMJ abnormality and no dentition abnormality Thyromental Distance: > or= 3.5 Finger Breadths Mallampati Class: II Neck + facial hair; neck extension not limited Respiratory normal respiratory effort; no respiratory distress Auscultation: lungs clear to auscultation bilaterally Cardiovascular Rate/Rhythm: regular rate and regular rhythm Neurologic moves all extremities Psychiatric Orientation: alert and oriented x 3 Testing Laboratory Results 04/05/20 08:16 04/05/20 08:16 PT 9.3 Seconds (9.0-12.0) 04/01/20 11:10 INR 0.9 (0.9-1.1) 04/01/20 11:10 Urine Color Dark Yellow 04/01/20 11:05 Urine Appearance Clear (Clear) 04/01/20 11:05 Urine pH 5.5 (4.5-7.5) 04/01/20 11:05 Ur Specific [place] 1.013 (1.000-1.030) 04/01/20 11:05 Urine Protein Negative (Negative) 04/01/20 11:05 Urine Glucose (UA) Negative (Negative) 04/01/20 11:05 Urine Ketones Negative (Negative) 04/01/20 11:05 Urine Nitrite Negative (Negative) 04/01/20 11:05 Ur Leukocyte Esterase Negative (Negative) 04/01/20 11:05
[2020-04-05] MEDS ORDERED: PROPOFOL IV EMULSION 10 MG/ML 20 ML VIAL IV ONE (12:05)
[2020-04-05] MEDS ORDERED: LIDOCAINE HCL 2% 2 ML VIAL/AMP(20MG/ML) INFIL ONE (12:05)
[2020-04-05] MEDS ORDERED: DEXAMETHASONE SOD INJ 4 MG/ML VIAL ONE (12:05)
[2020-04-05] MEDS ORDERED: ONDANSETRON INJ 2 MG/ML 2 ML VIAL ONE (12:05)
[2020-04-05] MEDS ORDERED: MIDAZOLAM HCL 1 MG/ML 2ML VIAL ONE (12:06)
[2020-04-05] MEDS ORDERED: ROCURONIUM BROMIDE 10 MG/ML 5 ML VIAL IV ONE (12:06)
[2020-04-05] MEDS ORDERED: fentaNYL citrate 100 MCG/2 ML VIAL ONE (12:06)
[2020-04-05] MEDS ORDERED: INDOMETHACIN 50 MG SUPP PR ONE (12:11)
--- NOTE | 2020-04-05 13:12 | Post Operative Brief Note ---
Immediate Post Op Note v1 Date of Surgery April 05, 2020 Pre & Post Diagnosis Operation Date: 04/02/20 14:10 Pre-Op Diagnosis: CHOLEDOCHOLITHIASIS Post-Op Diagnosis: CHOLEDOCHOLITHIASIS Operation Date: 04/03/20 11:00 Pre-Op Diagnosis: CHOLEDOCHOLITHIASIS Post-Op Diagnosis: CHOLEDOCHOLITHIASIS Operation Date: 04/05/20 08:55 Pre-Op Diagnosis: CHOLEDOCHOLITHIASIS Post-Op Diagnosis: CHOLEDOCHOLITHIASIS/occluded biliary stent I identified the patient and participated in the time-out.: Yes Procedure Operation Date: 04/02/20 14:10 Actual Procedures p Endoscopic Retrograde Cholangiopancreatography(Not Applicable) - Francisco Bermudez DO Operation Date: 04/03/20 11:00 Actual Procedures p Laparoscopic Cholecystectomy, - Fitz Savage DO s Repair of Umbilical Hernia - Fitz Savage DO Operation Date: 04/05/20 08:55 Actual Procedures p Endoscopic Retrograde Cholangiopancreatogram, Stone Extraction, Stent Exchange(Not Applicable) - Francisco Bermudez DO Surgeon Francisco Bermudez DO Cardiovascular Lab Director micaela Graves Estimated Blood Loss 0 Findings Consistent with Post-Op Diagnosis
--- NOTE | 2020-04-05 13:13 | Communication Note ---
Date of Service: April 05, 2020 The patient underwent repeat ERCP today for suspected biliary stent occlusion. The procedure was notable for an occluded biliary stent. This was removed and several stones were removed from the common bile duct. A new stent was placed. Recommendations Clear liquids today Repeat labs tomorrow Continue course of antibiotics to complete 10 days Thanh ERCP for stent removal in 6 to 8 weeks
--- NOTE | 2020-04-05 13:24 | GI REPORT ---
Patient Name: Oracio Coffey Procedure Date: 04/05/2020 12:51 PM Date of : 1980 Admit Type: Inpatient Age: 39 Gender: Male Attending MD: Francisco Bermudez DO Procedure: ERCP Providers: Francisco Bermudez DO Referring MD: Daquan Lindquist M.d., Fitz Savage Indications: Stent change Medicines: General Anesthesia Complications: No immediate complications. Estimated blood loss: Minimal. Estimated Blood Loss: Estimated blood loss was minimal. Procedure: Pre-Anesthesia Assessment: - Prior to the procedure, a History and Physical was performed, and patient medications, allergies and sensitivities were reviewed. The patient's tolerance of previous anesthesia was reviewed. - The risks and benefits of the procedure and the sedation options and risks were discussed with the patient. All questions were answered and informed consent was obtained. - Patient identification and proposed procedure were verified prior to the procedure by the physician, the nurse and the school childcare attendant. The procedure was verified in the pre-procedure area in the procedure room. - Pre-procedure physical examination revealed no contraindications to sedation. - ASA Grade Assessment: III - A patient with severe systemic disease. - After reviewing the risks and benefits, the patient was deemed in satisfactory condition to undergo the procedure. - The anesthesia plan was to use general anesthesia. - Immediately prior to administration of medications, the patient was re-assessed for adequacy to receive sedatives. - The heart rate, respiratory rate, oxygen saturations, blood pressure, adequacy of pulmonary ventilation, and response to care were monitored throughout the procedure. - The physical status of the patient was re-assessed after the procedure. After obtaining informed consent, the scope was passed under direct vision. Throughout the procedure, the patient's blood pressure, pulse, and oxygen saturations were monitored continuously. The scope was introduced through the mouth, and advanced to the duodenum and used to inject contrast into the bile duct. The ERCP was accomplished without difficulty. The patient tolerated the procedure well. Findings: A front desk administrator film of the abdomen was obtained. Surgical clips, consistent with a previous cholecystectomy, were seen in the area of the right upper quadrant of the abdomen. A biliary stent was visible on the front desk administrator film. A pancreatic stent was visible on the front desk administrator film. The esophagus was successfully intubated under direct vision without detailed examination of the pharynx, larynx, and associated structures, and upper GI tract. The upper GI tract was grossly normal. A biliary sphincterotomy had been performed. The sphincterotomy appeared open. One biliary and one pancreatic stent originating in the biliary tree and the pancreatic duct were emerging from the major papilla. The bilary stent was visibly occluded. One stent was removed from the biliary tree using a snare. The bile duct was deeply cannulated with the 15 mm balloon and 0.035 in Acrobat 2 guidewire. Contrast was injected. I personally interpreted the bile duct images. Contrast extended to the hepatic ducts. The lower third of the main bile duct and middle third of the main bile duct contained filling defect(s) thought to be a stone and sludge. To discover objects, the biliary tree was swept with a 15 mm balloon starting at the bifurcation multiple times. Sludge was swept from the duct. Many darkly pigmented stones were removed. No stones remained. One 10 Fr by 7 cm biliary stent with a single external flap and a single internal flap was placed 7 cm into the common bile duct. Bile flowed through the stent. The stent was in good position. The endoscope was withdrawn from the patient. The total fluoroscopy exposure time was 47 seconds. Indomethacin 100 mg was given via suppository to decrease the risk of post-ERCP pancreatitis (PEP). Impression: - Prior biliary sphincterotomy appeared open. - One visibly occluded stents from the biliary tree - A filling defect consistent with a stone and sludge was seen on the cholangiogram. - Choledocholithiasis was found. Complete removal was accomplished by balloon extraction. - One new biliary stent was placed into the common bile duct. - Indomethacin given to decrease risk of post-ERCP pancreatitis. Recommendation: - Return patient to [facility] for ongoing care. - Clear liquid diet today. - Observe patient's clinical course following today's ERCP with therapeutic intervention. - Repeat ERCP in 6 weeks to remove stent. Francisco Bermudez D.O. Francisco Bermudez, 04/05/2020 1:23:57 PM This report has been signed electronically. Note Initiated On: 04/05/2020 12:51 PM Number of Addenda: 0 I attest to the content of the Intraoperative Record and orders documented therein, exceptions below {[id number]}
--- NOTE | 2020-04-05 13:36 | Fluoroscopy Report ---
[place] ERCP biliary ductal CLINICAL HISTORY: EXPLORE DUCTS COMPARISON STUDY: 04/02/2020 FLUOROSCOPY TIME: 47 seconds. NUMBER OF FLUOROSCOPIC IMAGES: 6 FINDINGS: Fluoroscopic spot images were obtained during ERCP. There are surgical clips consistent wit h a prior cholecystectomy. Final image demonstrates a biliary enteric stent with good drain out. IMPRESSION: Fluoroscopic spot images obtained during ERCP. ACT 112: Negative or not required by law. Electronically signed by: Willie Diana M.D. 04/05/2020 1:35 PM
--- NOTE | 2020-04-05 13:36 | Anesthesiology Progress Note ---
Date of Service April 05, 2020 Anesthesia Post Procedure Vital Signs Vital Signs: Temp Pulse Pulse Resp BP Pulse Ox 04/05/20 13:25 66 14 132/72 99 04/05/20 13:15 36.7 C 69 16 125/76 98 04/05/20 11:39 36.9 C 56 L 16 131/74 97 04/05/20 07:27 36.5 C 55 L 16 124/73 96 04/04/20 22:24 36.6 C 50 L 16 130/73 97 04/04/20 16:06 36.5 C 51 L 16 103/58 L 95 Pain Intensity Right Upper Abdomen: Pain Intensity: 2 Abdomen: Pain Intensity: 4 Transfer of Care Handoff Completed per policy Notes Mental Status: alert / awake / arousable and participated in evaluation Patient Amnestic to Procedure: Yes Nausea / Vomiting: adequately controlled Pain: adequately controlled Airway Patency, RR, SpO2: stable & adequate BP & HR: stable & adequate Hydration State: stable & adequate Anesthetic Complications: no major complications apparent and Pt Satisfied with anesthetic care
--- NOTE | 2020-04-05 22:06 | Hospitalist Progress Note ---
Date of Service April 05, 2020 Assessment & Plan (1) Cholelithiasis: Elevated LFTs: Mr. Coffey is a 39 year old male without significant past medical history who presented to [facility] ER today complaining of Nausea, Pale Stools, Dark Urine, Diffuse Pruritus, Jaundice, Grossly Abnormal LFT's (Total Bilirubin 3.9 mg/dl, ALT 590 U/L, AST 220 U/L, Alk Phos 369 U/L) and he has evidence of Gall Bladder Disease (sludge and small stones, mildly distended gall bladder, wall thickness is at the upper limit of normal -- but it does not appear to be acutely inflamed). Suspect he may have had transient biliary obstruction / ? passage of a gall stone leading to his current symptoms. He is being admitted to observation status for further evaluation and treatment. S/P ERCP and cholecystectomy. Patient however, required a second ERCP today Bilairy stent was occluded, his was removed and replaced on 04/05 Patient feeling much better today. will monitor overnight. -Pain appears better controlled Jaundice: -- He has faint scleral icterus, pruritus, acholic stools, and dark urine co nsistent with hyperbilirubinemia. -- secondary to first problem. will monitor. (2) Jaundice: Admission and Anticipated Discharge Date Admission Date: April 03, 2020 Subjective 39 yo male reports feeling much better ater second ERCP. Review of Systems Review of Systems: All systems reviewed & are unremarkable except as noted in HPI & below Physical Exam Constitutional: WD/WN, vitals as above Eyes: PERRL, conjunctivae normal, anicteric sclerae ENMT: external ear and nose normal, oropharynx normal Neck: trachea midline, no thyromegaly Respiratory: normal respiratory effort, lungs clear to auscultation Cardiovascular: RRR, no murmur, no edema Gastrointestinal (Abdomen): normal bowel sounds, soft, nontender, no hepatosplenomegaly Musculoskeletal: no cyanosis or clubbing, extremities motor strength 5/5 Skin: no rashes, warm and dry Neurologic: PERRL, EOMI, accommodation nl, no face palsy, no dysarthria Psychiatric: A+Ox3, euthymic affect Results & Data Results & Data ([facility]) Vital Signs (Past 12 Hours) Vital Signs Temp Pulse Pulse Resp BP Pulse Ox 04/05/20 19:15 36.6 C 60 16 143/82 H 96 04/05/20 15:13 36.5 C 64 16 143/81 H 94 04/05/20 14:50 36.5 C 61 16 136/87 95 04/05/20 14:20 36.5 C 63 14 135/78 94 04/05/20 13:55 36.9 C 61 14 132/77 94 04/05/20 13:45 62 20 134/74 95 04/05/20 13:35 69 11 L 137/77 92 04/05/20 13:25 66 14 132/72 99 04/05/20 13:15 36.7 C 69 16 125/76 98 04/05/20 11:39 36.9 C 56 L 16 131/74 97 PG Care Time/CCT Total # of Minutes Spent Total Time Spent with Patient: Total time spent is greater than 50% in coordination of care (as documented) at patient's floor/unit and/or counseling patient: Coding Level of Care Code 37145 Subseq Hosp Care Lvl 3 Diagnoses Cholelithiasis K80.81 Biliary obstruction: with biliary obstruction Cholelithiasis location: other site Jaundice R17 Time Spent (min) 35 (1) Cholelithiasis Biliary obstruction: with biliary obstruction Cholelithiasis location: other site Qualified Code(s): K80.81 - Other cholelithiasis with obstruction
[2020-04-06 06:37] LABS: Hematocrit (blood only) 33.8 % (42-52); Hemoglobin 11.3 g/dL (14.0-18.0); Mean Corpuscular Hemoglobin 29.8 pg (25-34); Mean Corpuscular Hgb Conc 33.4 g/dL (32-36); Mean Corpuscular Volume 89.2 fL (80-100); Mean Platelet Volume 11.1 fL (7.4-10.4); Platelet Count 307 K/uL (130-400); RDW Coefficient of Variation 13.3 % (11.5-14.5); RDW Standard Deviation 43.1 fL (36.4-46.3); Red Blood Count 3.79 M/uL (4.7-6.1); White Blood Count 10.81 K/uL (4.8-10.8)
[2020-04-06 07:25] LABS: Albumin Globulin Ratio 0.9 (0.9-2); Albumin Level 3.2 gm/dl (3.4-5.0); BUN Creatinine Ratio 6.1 (10-20); Bilirubin,Total 5.3 mg/dl (0.2-1); Calcium 9.2 mg/dl (8.5-10.1); Creatinine Clr Calc Pharmacy 103.3 ml/min; Est GFR (African American) 120.2; Est GFR (Non-African American) 103.7; Globulin 3.6 gm/dl (2.5-4.0); Potassium 3.6 mmol/L (3.5-5.1); Total Protein 6.8 gm/dl (6.4-8.2)
[2020-04-06] MEDS: PANTOprazole 40 MG TAB PO SCH (08:29)
[2020-04-06] MEDS ORDERED: DOCUSATE SODIUM SYRUP 100 MG/10 ML UDC PO SCH (10:00)
--- NOTE | 2020-04-06 10:27 | Gastroenterology Progress Note ---
Date of Service April 06, 2020 Assessment & Plan (1) Elevated liver function tests: Patient admitted with malaise, acholic stools, and symptoms possibly consistent with biliary obstruction. Was found to have small biliary stones on MRCP and underwent ERCP followed by cholecystectomy. Due to labs not trending down, repeat yesterday was performed to ask a possibility of whether the stent had become clogged during the time of the cholecystectomy. His liver function tests have continued to increase to a somewhat plateau at a high level, I would suggest possibility of other etiologies such as intrinsic liver disease, less likely ischemia during surgery, no evidence to suggest drug-induced liver injury. Etiologies would suggest or possibly intrinsic liver disease such as an autoimmune condition, drug-induced liver injury, or viral etiologies. Recommendations 1. Viral serologies for CMV, HSV, EBV 2 . ELAINE, AMA, ANCA, smooth muscle antibody 3. Routine viral serologies for hepatitis 4. Advance diet as tolerated, daily LFTs, will need follow-up pending his clinical course and laboratory findings. We will review his MR carefully as well as imaging with radiology, however initially there is some concern that this could possibly be PSC. Admission and Anticipated Discharge Date Admission Date: April 03, 2020 Subjective Patient feels well today, no abdominal pain, some mild bloating, very mild to no nausea Physical Exam Constitutional: WD/WN, vitals as above Cardiovascular: RRR, no murmur, no edema Gastrointestinal (Abdomen): normal bowel sounds, soft, nontender, no hepatosplenomegaly Results & Data ([facility]) Vital Signs (Past 12 Hours) Vital Signs Temp Pulse Resp BP Pulse Ox 04/06/20 07:01 36.6 C 55 L 20 138/78 97 04/06/20 02:54 36.9 C 65 16 121/60 95 04/05/20 22:35 36.9 C 63 16 123/72 96
[2020-04-06] MEDS: POLYETHYLENE (MIRALAX) 17 GM PACK PO SCH (10:38)
--- NOTE | 2020-04-06 11:17 | Surgery Progress Note ---
Date of Service April 06, 2020 Assessment & Plan (1) Hx laparoscopic cholecystectomy: Status post laparoscopic cholecystectomy along with ERCP, status post stent exchange yesterday. His LFTs and T bili are slightly up from yesterday. We discussed the case in the room with Dr. Arana from gastroenterology. At this point the patient is doing quite well and clinically seems to be improved. However his labs are still slightly elevated and have not shown a downward trend. We agreed that we could advance his diet and check other sources for hepatic dysfunction. If he tolerates a diet and his labs are stable to improved tomorrow he may be discharged home with follow-up as an outpatient. Advance to regular diet Repeat LFTs in the morning Surgery will continue to follow (2) Elevated liver function tests: Admission and Anticipated Discharge Date Admission Date: April 03, 2020 Subjective Status post laparoscopic cholecystectomy and ERCP, post procedure day #1 ERCP with stent exchanged for choledocholithiasis and clogged stent. His LFTs are uptrending but he feels much better than he did yesterday. Physical Exam Constitutional: WD/WN, vitals as above Gastrointestinal (Abdomen): normal bowel sounds, soft, nontender, no hepatosplenomegaly Inspection/Auscultation: + abdominal surgical incision Results & Data ([facility]) Vital Signs (Past 12 Hours) Vital Signs Temp Pulse Resp BP Pulse Ox 04/06/20 07:01 36.6 C 55 L 20 138/78 97 04/06/20 02:54 36.9 C 65 16 121/60 95 Laboratory Results Laboratory Results - last 24 hr 04/06/20 04/06/20 06:21 06:21 WBC 10.81 H RBC 3.79 L Hgb 11.3 L Hct 33.8 L MCV 89.2 MCH 29.8 MCHC 33.4 RDW Std Deviation 43.1 RDW Coeff of Quynh 13.3 Plt Count 307 MPV 11.1 H Sodium 140 Potassium 3.6 Chloride 105 Carbon Dioxide 29 Anion Gap 6.0 BUN 6 L Creatinine 0.92 Est Cr Clr Drug Dosing 103.3 Est GFR ( Amer) 120.2 Est GFR (Non-Af Amer) 103.7 BUN/Creatinine Ratio 6.1 L Glucose 99 Calcium 9.2 Total Bilirubin 5.3 H AST 487 H ALT 991 H Alkaline Phosphatase 318 H Total Protein 6.8 Albumin 3.2 L Globulin 3.6 Albumin/Globulin Ratio 0.9 PG Care Time/CCT Total # of Minutes Spent Total Time Spent with Patient: Total time spent is greater than 50% in coordination of care (as documented) at patient's floor/unit and/or counseling patient: Coding Level of Care Code None Diagnoses Hx laparoscopic cholecystectomy Z90.49 Elevated liver function tests R79.89
[2020-04-06] MEDS ORDERED: Nursing to Pharmacy Communication SCH (20:30)
--- NOTE | 2020-04-06 21:45 | Hospitalist Progress Note ---
Date of Service April 06, 2020 Assessment & Plan (1) Cholelithiasis: Elevated LFTs: Mr. Coffey is a 39 year old male without significant past medical history who presented to [facility] ER today complaining of Nausea, Pale Stools, Dark Urine, Diffuse Pruritus, Jaundice, Grossly Abnormal LFT's (Total Bilirubin 3.9 mg/dl, ALT 590 U/L, AST 220 U/L, Alk Phos 369 U/L) and he has evidence of Gall Bladder Disease (sludge and small stones, mildly distended gall bladder, wall thickness is at the upper limit of normal -- but it does not appear to be acutely inflamed). Suspect he may have had transient biliary obstruction / ? passage of a gall stone leading to his current symptoms. He is being admitted to observation status for further evaluation and treatment. S/P ERCP and cholecystectomy. Patient however, required a second ERCP Bilairy stent was occluded, his was removed and replaced on 04/05 Patient feeling much better today. However, ALST/ALT remain elevated. Images suggestive of Primary schlerosing cholangitis. will order hepatitis serology, LFTs, HSV, EBV, CMV. will monitor overnight. -Pain appears better controlled (2) Jaundice: -- He has faint scleral icterus, pruritus, acholic stools, and dark urine consistent with hyperbilirubinemia. -- secondary to first problem. will monitor. Admission and Anticipated Discharge Date Admission Date: April 03, 2020 Subjective Patient reports feeling better. Had multidisciplinary discussion with patient. Review of Systems Review of Systems: All systems reviewed & are unremarkable except as noted in HPI & below Physical Exam Constitutional: WD/WN, vitals as above Eyes: PERRL, conjunctivae normal, anicteric sclerae ENMT: external ear and nose normal, oropharynx normal Neck: trachea midline, no thyromegaly Respiratory: normal respiratory effort, lungs clear to auscultation Cardiovascular: RRR, no murmur, no edema Gastrointestinal (Abdomen): normal bowel sounds, soft, nontender, no hepatosplenomegaly Musculoskeletal: no cyanosis or clubbing, extremities motor strength 5/5 Skin: no rashes, warm and dry Neurologic: PERRL, EOMI, accommodation nl, no face palsy, no dysarthria Psychiatric: A+Ox3, euthymic affect Results & Data Results & Data ([facility]) Vital Signs (Past 12 Hours) Vital Signs Temp Pulse Resp BP Pulse Ox 04/06/20 15:11 36.5 C 55 L 17 147/80 H 97 PG Care Time/CCT Total # of Minutes Spent Total Time Spent with Patient: Total time spent is greater than 50% in coordination of care (as documented) at patient's floor/unit and/or counseling patient: Coding Level of Care Code 14684 Subseq Hosp Care Lvl 3 Diagnoses Cholelithiasis K80.81 Biliary obstruction: with biliary obstruction Cholelithiasis location: other site Jaundice R17 Time Spent (min) 35 (1) Cholelithiasis Biliary obstruction: with biliary obstruction Cholelithiasis location: other site Qualified Code(s): K80.81 - Other cholelithiasis with obstruction
[2020-04-06] MEDS: CIPROFLOXACIN 500 MG TAB PO SCH (21:46)
[2020-04-06] MEDS: DOCUSATE SODIUM 100 MG CAP PO SCH (21:46)
[2020-04-07 06:30] LABS: Albumin Level 2.9 gm/dl (3.4-5.0); BUN Creatinine Ratio 9.3 (10-20); Calcium 8.5 mg/dl (8.5-10.1); Creatinine Clr Calc Pharmacy 109.2 ml/min; Est GFR (African American) 125.1; Potassium 3.6 mmol/L (3.5-5.1)
[2020-04-07 06:49] LABS: Albumin Globulin Ratio 0.8 (0.9-2); Bilirubin,Total 4.7 mg/dl (0.2-1); Globulin 3.5 gm/dl (2.5-4.0); Total Protein 6.4 gm/dl (6.4-8.2)
[2020-04-07] MEDS: CIPROFLOXACIN 500 MG TAB PO SCH ×2 (08:45→21:20)
[2020-04-07] MEDS: POLYETHYLENE (MIRALAX) 17 GM PACK PO SCH (08:45)
[2020-04-07] MEDS: PANTOprazole 40 MG TAB PO SCH (08:45)
[2020-04-07] MEDS: DOCUSATE SODIUM 100 MG CAP PO SCH ×2 (08:45→21:20)
[2020-04-07 10:06] LABS: Hepatitis B Surf Ag Rflx Conf Neg (Neg)
[2020-04-07 10:34] LABS: Hepatitis C IgG 13Yrs+Old_Rflx Neg (Neg)
--- NOTE | 2020-04-07 10:52 | Surgery Progress Note ---
Date of Service April 07, 2020 Assessment & Plan (1) Hx laparoscopic cholecystectomy: Status post laparoscopic cholecystectomy, doing well from surgery standpoint. Persistent LFT elevation is slightly improved. Patient tolerating regular diet with no major issues. After discussion with GI, they would like to see a better trend in his LFTs. We will order an MRCP today as there is concern for possible PSC or other intrahepatic issue. He also may undergo repeat ERCP with possible more proximal stenting of the left hepatic duct that does not feel on prior imaging tomorrow with Dr. Bermudez. Agree with MRCP today N.p.o. after midnight in case ERCP tomorrow Repeat LFTs in a.m. Surgery will continue to follow, call with questions or concerns Admission and Anticipated Discharge Date Admission Date: April 03, 2020 Dawn Narayanan is resting comfortably in bed. He notes that he is doing well. He reports mild discomfort in abdomen. He is s/p laparoscopic cholecystectomy and ERCP, post procedure day #2 ERCP with stent exchanged for choledocholithiasis and clogged stent. His LFTs are slightly improved this morning. Physical Exam Constitutional: WD/WN, vitals as above Eyes: + anicteric sclerae Gastrointestinal (Abdomen): normal bowel sounds, soft, nontender, no hepatosplenomegaly Inspection/Auscultation: + abdominal surgical incision Results & Data ([facility]) Vital Signs (Past 12 Hours) Vital Signs Temp Pulse Resp BP Pulse Ox 04/07/20 07:15 37.0 C 57 L 16 117/63 97 04/06/20 23:07 37.2 C 63 16 144/84 H 97 PG Care Time/CCT Total # of Minutes Spent Total Time Spent with Patient: Total time spent is greater than 50% in coordination of care (as documented) at patient's floor/unit and/or counseling patient: Coding Level of Care Code None Diagnoses Hx laparoscopic cholecystectomy Z90.49
--- NOTE | 2020-04-07 11:27 | Hospitalist Progress Note ---
Date of Service April 07, 2020 Assessment & Plan (1) Cholelithiasis: Concern for primary sclerosing cholangitis vs. possibly retained stones. - S/p ERCP and cholecystectomy on 04/02 & 04/03 respectively. - Patient required a second ERCP with biliary stent occlusion: Removed & replaced on 04/05. - Hepatitis serology, LFTs, HSV, EBV, CMV all pending. - Discussed with GI, surgery today. Will repeat MRCP. NPO @ midnight. Cipro x 5 day course for prophylaxis after ERCPs. (2) Jaundice: Secondary to first problem. - Monitor Admission and Anticipated Discharge Date Admission Date: April 03, 2020 Subjective Doing well today. Still with jaundice. Reports no fevers/chills, chest pain, shortness of breath, abdominal pain, nausea, or vomiting. Physical Exam Constitutional: WD/WN, vitals as above Eyes: EOM intact bilaterally; no conjunctival abnormality and sclerae not anicteric ENMT: external ear and nose normal, oropharynx normal Neck: trachea midline, no thyromegaly normal visual inspection Respiratory: normal respiratory effort, lungs clear to auscultation no respiratory distress Cardiovascular: RRR, no murmur, no edema Gastrointestinal (Abdomen): Inspection/Auscultation: abdomen normal to inspection; abdomen not distended Musculoskeletal: no cyanosis or clubbing, extremities motor strength 5/5 Skin: no rashes, warm and dry Neurologic: moves all extremities and awake Psychiatric: Orientation: alert, oriented to person and cooperative Results & Data Results & Data ([facility]) Vital Signs (Past 12 Hours) Vital Signs Temp Pulse Resp BP Pulse Ox 04/07/20 07:15 37.0 C 57 L 16 117/63 97 PG Care Time/CCT Total # of Minutes Spent Total Time Spent with Patient: Total time spent is greater than 50% in coordination of care (as documented) at patient's floor/unit and/or counseling patient: Coding Level of Care Code 08356 Subseq Hosp Care Lvl 2 Diagnoses Cholelithiasis K80.81 Biliary obstruction: with biliary obstruction Cholelithiasis location: other site Jaundice R17 (1) Cholelithiasis Biliary obstruction: with biliary obstruction Cholelithiasis location: other site Qualified Code(s): K80.81 - Other cholelithiasis with obstruction
--- NOTE | 2020-04-07 11:30 | Gastroenterology Progress Note ---
Date of Service April 07, 2020 Assessment & Plan (1) Elevated liver function tests: Patient admitted with malaise, acholic stools, and symptoms possibly consistent with biliary obstruction. Was found to have small biliary stones on MRCP and underwent ERCP followed by cholecystectomy. Due to labs not trending down, repeat yesterday was performed to ask a possibility of whether the stent had become clogged during the time of the cholecystectomy. His liver function tests have continued to increase to a somewhat plateau at a high level, I would suggest possibility of other etiologies such as intrinsic liver disease, less likely ischemia during surgery, no evidence to suggest drug-induced liver injury. Etiologies would suggest or possibly intrinsic liver disease such as an autoimmune condition, drug-induced liver injury, or viral etiologies. Recommendations 1. Viral serologies for CMV, HSV, EBV 2 . ELAINE, AMA, ANCA, smooth muscle antibody 3. Routine viral serologies for hepatitis 4. I reviewed his imaging yesterday very carefully, his intrahepatics did suggest the possibility of small duct PSC, his left intrahepatic system also did not feel. I discussed the case with Dr. Bermudez, and question the possibility repeating his ERCP with a stent into the left intrahepatics as well as the right and see how that would affect his LFTs. Fortunately right now are coming down. Okay with diet today, n.p.o. after midnight, follow his LFTs in the morning Dr. Bermudez will return for definitive plan for outpatient versus continued inpatient care and/or procedure. Admission and Anticipated Discharge Date Admission Date: April 03, 2020 Subjective Doing well today. Still with jaundice. Reports no fevers/chills, chest pain, shortness of breath, abdominal pain, nausea, or vomiting. Physical Exam Constitutional: WD/WN, vitals as above Cardiovascular: RRR, no murmur, no edema Gastrointestinal (Abdomen): normal bowel sounds, soft, nontender, no hepatosplenomegaly Results & Data ([facility]) Vital Signs (Past 12 Hours) Vital Signs Temp Pulse Resp BP Pulse Ox 04/07/20 07:15 37.0 C 57 L 16 117/63 97
[2020-04-08 06:34] LABS: Hemoglobin 11.8 g/dL (14.0-18.0); Mean Corpuscular Hemoglobin 29.9 pg (25-34); Mean Corpuscular Hgb Conc 33.7 g/dL (32-36); Mean Corpuscular Volume 88.8 fL (80-100); Mean Platelet Volume 10.9 fL (7.4-10.4); Platelet Count 333 K/uL (130-400); RDW Coefficient of Variation 13.6 % (11.5-14.5); RDW Standard Deviation 43.8 fL (36.4-46.3); Red Blood Count 3.94 M/uL (4.7-6.1); White Blood Count 11.02 K/uL (4.8-10.8)
[2020-04-08 06:42] LABS: Prothrombin Time 9.8 Seconds (9.0-12.0)
[2020-04-08 07:24] LABS: Albumin Globulin Ratio 0.8 (0.9-2); Bilirubin Direct 3.2 mg/dl (0-0.2); Bilirubin,Total 4.7 mg/dl (0.2-1); Creatinine Clr Calc Pharmacy 94.1 ml/min; Est GFR (African American) 107.3; Est GFR (Non-African American) 92.6; Globulin 3.6 gm/dl (2.5-4.0); Magnesium 2.2 mg/dl (1.8-2.4); Potassium 3.5 mmol/L (3.5-5.1); Total Protein 6.6 gm/dl (6.4-8.2)
--- NOTE | 2020-04-08 07:50 | Magnetic Resonance Report ---
MR MRCP CLINICAL HISTORY: Abnormal liver function tests status post cholecystectomy COMPARISON STUDY: 04/01/2020 FINDINGS: A breath-hold MRCP was performed. MIP images were acquired There is trace perihepatic fluid. The spleen is borderline enlarged measuring 12.7 cm. The gallbladder is surgically absent. There is no intra or extrahepatic biliary ductal dilatation. Th ere is no pancreatic ductal dilatation. No ductal filling defects are visualized. There is an 8 mm cystic lesion in the pancreatic head. Inferior to the liver and anterior to the transverse colon is a partially visualized 9 cm mass. This was not present on the prior study. A statistical basis this represents a hematoma or less likely phl egmonous change. CT scanning could be obtained for further evaluation as deemed clinically appropriat e. IMPRESSION: 1. Surgically absent gallbladder 2. No evidence of ductal dilatation 3. No ductal filling defects identified 4. Trace perihepatic fluid 5. Interval development of a 9 cm partially visualized mass inferior to the liver and to the transver se colon. This statistically represents a hematoma or less likely phlegmonous change. CT scanning cou ld be obtained in follow-up as deemed clinically appropriate. ACT 112: Negative or not required by law. Electronically signed by: Willie Diana M.D. 04/08/2020 7:48 AM
[2020-04-08] MEDS: PANTOprazole 40 MG TAB PO SCH (08:53)
[2020-04-08] MEDS: POLYETHYLENE (MIRALAX) 17 GM PACK PO SCH (08:53)
[2020-04-08] MEDS: DOCUSATE SODIUM 100 MG CAP PO SCH ×2 (08:53→20:40)
[2020-04-08] MEDS: CIPROFLOXACIN 500 MG TAB PO SCH ×2 (08:53→20:40)
--- NOTE | 2020-04-08 08:57 | Hospitalist Progress Note ---
Date of Service April 08, 2020 Assessment & Plan (1) Cholelithiasis: Concern for primary sclerosing cholangitis vs. possibly retained stones. - S/p ERCP and cholecystectomy on 04/02 & 04/03 respectively. - Patient required a second ERCP with biliary stent occlusion: Removed & replaced on 04/05. - Hepatitis serology, LFTs, HSV, EBV, CMV all pending. - repeat MRCP 04/07/20 IMPRESSION: . Surgically absent gallbladder. No evidence of ductal dilatation. No ductal filling defects identified Trace perihepatic fluid Interval development of a 9 cm partially visualized mass inferior to the liver and to the transverse colon. This statistically represents a hematoma or less likely phlegmonous change. CT scanning confirms hematoma . Cipro x 5 day course for prophylaxis after ERCPs. (2) Jaundice: Secondary to first problem. 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, on 21 hour acetylcistine infusion to complete 04/09/20 Admission and Anticipated Discharge Date Admission Date: April 03, 2020 Subjective pt was feeling no distress, is obviously jaundiced, did call in evening with explanation of plan of care Review of Systems Review of Systems: Mild distress and fatigue no headache, blurry or double vision no speech or swallowing issues no chest pain, pressure or palpitations no shortness of breath, cough or wheezes no abdominal pain, nausea or vomiting, diarrhea or constipation no dysuria, hematuria or frequency no focal joint pain or swelling no back pain, CVA tenderness or radicular pain no bruising, bleeding remains jaundiced no focal signs of weakness or numbness or altered sensation no complaints of anxiety or depression.. Physical Exam Physical Exam: The patient appeared well nourished and normally developed. Vital signs as documented. Head exam is normocephalic atraumatic no scleral icterus Neck is without JVD, thyromegaly, or carotid bruits. Lungs are clear to auscultation, no focal loss of breath sounds Cardiac exam, Rhythm is regular.. No murmurs, rubs or gallops. Abdominal exam reveals normal bowel sounds, soft non tender, mildly distended Extremities are nonedematous and both pedal pulses are present Neurologic exam is alert and oriented, no focal loss of strength or sensation Skin is with jaundice, surgical sites are clean and intact Psychologically is without concerns for anxiety or depression Results & Data Results & Data ([facility]) Vital Signs (Past 12 Hours) Vital Signs Temp Pulse Resp BP Pulse Ox 04/08/20 07:01 98.6 F 59 L 20 115/69 97 04/07/20 23:15 98.6 F 71 16 145/87 H 97 PG Care Time/CCT Total # of Minutes Spent Total Time Spent with Patient: Total time spent is greater than 50% in coordination of care (as documented) at patient's floor/unit and/or counseling patient: Coding Level of Care Code 59442 Subseq Hosp Care Lvl 2 Diagnoses Cholelithiasis K80.81 Biliary obstruction: with biliary obstruction Cholelithiasis location: other site Jaundice R17 (1) Cholelithiasis Biliary obstruction: with biliary obstruction Cholelithiasis location: other site Qualified Code(s): K80.81 - Other cholelithiasis with obstruction
[2020-04-08] MEDS ORDERED: AcetylCYSTEINE IV 21 HR REGIMEN (>40KG) IV STA (09:36)
[2020-04-08] MEDS ORDERED: DEXTROSE 5% IV ONE ×3 (10:00→15:00)
[2020-04-08] MEDS ORDERED: ACETYLCYSTEINE IV ONE ×3 (10:00→15:00)
--- NOTE | 2020-04-08 10:20 | Gastroenterology Progress Note ---
Date of Service April 08, 2020 Assessment & Plan (1) Elevated liver function tests: Patient admitted with malaise, acholic stools, and symptoms possibly consistent with biliary obstruction. Was found to have small biliary stones on MRCP and underwent ERCP (04/02) followed by cholecystectomy (04/03). Due to LFTs not trending down, repeat ERCP performed 04/05 w exchange of clogged biliary stent and choledocholithiasis removal. However LFTs still remain elevated. MRCP obtained showed 9cm mass inferior to liver and transverse colon suspect hematoma. DDx: AIH, SINGH (hx of fatty liver), DILI, viral hepatitis, ischemic injury to liver. - F/u AIH, viral serologies, hepatitis a/b/c - Obtain CT abd/pelvis w contrast to eval 9cm mass on abdomen area - N-acetylcysteine protocol for possible DILI - ? possible PSC as noted small duct on L intrahepatic system. Will discuss w Dr. Bermudez indication for repeat ERCP w stent placement on L intrahepatic duct. Admission and Anticipated Discharge Date Admission Date: April 03, 2020 Supervising Physician Co-Signing Physician Notes I saw and evaluated the patient. His labs have continued to trend upward without obvious evidence of biliary obstruction on his MRCP. There is a 9 cm and adjacent to the liver which likely represents a postsurgical hematoma. We would recommend further evaluation with a CT of the abdomen. With regard to the elevated liver enzymes acute viral serologies and autoimmune markers have been ordered. Did start the patient on N-acetylcysteine today for empiric therapy. Pending the results we may have the patient discharged to home tomorrow as he is actually feeling quite well today. Subjective Pt denies abd pain, n/v. Tolerating solid meals yesterday, passing flatus and BM this AM. NPO since midnight for possible repeat ERCP MRCP obtained yesterday showed 9cm mass inferior to liver and transverse colon. LFTs similarly elevated: Tbili 4.7, AST 419/ALT 939, alk davida 335 Review of Systems Review of Systems: All systems reviewed & are unremarkable except as noted in HPI & below Physical Exam Constitutional: WD/WN, vitals as above well groomed, cooperative and comfortable Eyes: + scleral abnormality (icteric), PERRL and EOM intact bilaterally Respiratory: normal respiratory effort, lungs clear to auscultation Cardiovascular: RRR, no murmur, no edema Gastrointestinal (Abdomen): normal bowel sounds, soft, nontender, no hepatosplenomegaly Skin: no rashes, warm and dry + jaundice + lap rohit trochar insertion site healing, CDI Psychiatric: A+Ox3, euthymic affect Lymphatic: no lymphedema Results & Data ([facility]) Vital Signs (Past 12 Hours) Vital Signs Temp Pulse Resp BP Pulse Ox 04/08/20 07:01 37.0 C 59 L 20 115/69 97 04/07/20 23:15 37.0 C 71 16 145/87 H 97
[2020-04-08] MEDS ORDERED: OPTIRAY 320 100ml IV ONE (12:37)
--- NOTE | 2020-04-08 13:09 | CT Scan Report ---
CT SCAN OF THE ABDOMEN AND PELVIS WITH IV CONTRAST CLINICAL HISTORY: Abnormal MRCP. Recent cholecystectomy. Abdominal mass. Generalized abdominal pain . Bloating. COMPARISON STUDY: MRCP dated 04/07/2020 and 04/01/2020. TECHNIQUE: Following the IV administration of 94 cc of Optiray 320, CT scan of the abdomen and pelvi s is performed from the lung bases to the proximal femora. Images are reviewed in the axial, sagittal , and coronal planes. IV contrast was administered without complication. Oral contrast was utilized. A dose lowering technique was utilized adhering to the principles of ALARA. CT DOSE: 507.91 mGy.cm FINDINGS: Lung bases: The heart is normal in size and without pericardial effusion. A calcified granuloma is no corrie in the right middle lobe. The lung bases are otherwise clear. Liver: The contrast-enhanced liver is normal in size, contour, and attenuation. There is no intrahepa tic biliary ductal dilatation. The hepatic veins and portal veins are patent. Mild pneumobilia is not ed. Gallbladder: Surgically absent noting clips in the gallbladder fossa. Stents are noted within the com mon bile duct and the pancreatic duct. Spleen: Normal in size and attenuation. Pancreas: Unremarkable. Adrenal glands: Unremarkable. Kidneys: The contrast enhanced kidneys are normal in size and without hydronephrosis. The kidneys enh ance symmetrically. Scattered subcentimeter cortical hypodensities likely represent cysts but are too small for definitive characterization. Abdominal vasculature: The abdominal aorta is normal in course and caliber. Bowel: There is no bowel obstruction. Enteric contrast reaches the colon. Moderate constipation is ob served. The appendix is well-visualized and normal. Peritoneum: No intraperitoneal free air is identified. There is a complex hyperdense lesion in the [facility] ventral abdomen inferior to liver. This measures approximately 9 x 5 x 10.5 cm as seen on image # 207. This is new from 04/01/2020 and given the density is typical for a hematoma. There is also trace complex perihepatic fluid, as well as trace fluid in the gallbladder fossa. A small volume of complex fluid is seen in the paracolic gutters and in the pelvis. A hematocrit level is noted within the pel ralph fluid. No active extravasation is seen at the time of examination. Periumbilical induration is li linda related to a laparoscopy port. Lymphadenopathy: None. Pelvic viscera: The bladder, prostate, and seminal vesicles are normal as imaged. Skeletal structures: No lytic or blastic lesions are seen. IMPRESSION: 1. There is postoperative change from recent cholecystectomy with common bile duct and pancreatic alexandra t stents in place. 2. There is an approximately 9 x 5 x 10.5 cm hyperdense lesion within the right ventral abdomen below the liver. This is new from the preoperative examination, and given the density is typical in appear ance for a hematoma. 3. There is also trace complex perihepatic fluid, trace complex fluid in the gallbladder fossa, and h yperdense fluid within the paracolic gutters and pelvis. This is typical in appearance for hemoperito neum. No active extravasation is seen at the time of examination. 4. Moderate constipation. 5. Additional findings as above. ACT 112: Negative or not required by law. Electronically signed by: Jv Schwartz M.D. 04/08/2020 1:08 PM
--- NOTE | 2020-04-08 14:30 | Surgery Progress Note ---
Date of Service April 08, 2020 Assessment & Plan (1) Hx laparoscopic cholecystectomy: Status post lap rohit and ERCP, along with second ERCP for stent exchange. No obvious reason for liver enzyme elevation at this time. Okay to advance diet as tolerated, stable for discharge from surgical standpoint Surgery will follow in house, call with questions or concerns (2) Elevated liver function tests: Admission and Anticipated Discharge Date Admission Date: April 03, 2020 Subjective Status post laparoscopic cholecystectomy and ERCP for choledocholithiasis, re peat ERCP with stent exchange or block stent. He had an MRCP yesterday which showed no bile duct obstruction, but did noted a likely hematoma. CT abdomen pelvis was performed to confirm the presence of a hematoma. The patient is otherwise doing well, still easily fatigued but no other complaints. Physical Exam Constitutional: WD/WN, vitals as above Eyes: sclerae not anicteric Gastrointestinal (Abdomen): normal bowel sounds, soft, nontender, no hepatosp lenomegaly Inspection/Auscultation: + abdominal surgical incision (Ecchymosis at umbilicus, no infections) Percussion/Palpation: no hernia Skin: + jaundice Results & Data ([facility]) Vital Signs (Past 12 Hours) Vital Signs Temp Pulse Resp BP Pulse Ox 04/08/20 07:01 37.0 C 59 L 20 115/69 97 Laboratory Results Laboratory Results - last 24 hr 04/08/20 04/08/20 04/08/20 06:00 06:00 06:00 WBC 11.02 H RBC 3.94 L Hgb 11.8 L Hct 35.0 L MCV 88.8 MCH 29.9 MCHC 33.7 RDW Std Deviation 43.8 RDW Coeff of Quynh 13.6 Plt Count 333 MPV 10.9 H PT 9.8 INR 1.0 Sodium 139 Potassium 3.5 Chloride 106 Carbon Dioxide 27 Anion Gap 7.0 BUN 9 Creatinine 1.01 Est Cr Clr Drug Dosing 94.1 Est GFR ( Amer) 107.3 Est GFR (Non-Af Amer) 92.6 BUN/Creatinine Ratio 9.0 L Glucose 95 Calcium 9.0 Magnesium 2.2 Total Bilirubin 4.7 H Direct Bilirubin 3.2 H AST 419 H ALT 939 H Alkaline Phosphatase 335 H Total Protein 6.6 Albumin 3.0 L Globulin 3.6 Albumin/Globulin Ratio 0.[address] SCAN OF THE ABDOMEN AND PELVIS WITH IV CONTRAST CLINICAL HISTORY: Abnormal MRCP. Recent cholecystectomy. Abdominal mass. Generalized abdominal pain. Bloating. COMPARISON STUDY: MRCP dated 04/07/2020 and 04/01/2020. TECHNIQUE: Following the IV administration of 94 cc of Optiray 320, CT scan of the abdomen and pelvis is performed from the lung bases to the proximal femora. Images are reviewed in the axial, sagittal, and coronal planes. IV contrast was administered without complication. Oral contrast was utilized. A dose lowering technique was utilized adhering to the principles of ALARA. CT DOSE: 507.91 mGy.cm FINDINGS: Lung bases: The heart is normal in size and without pericardial effusion. A ca lcified granuloma is noted in the right middle lobe. The lung bases are otherwise clear. Liver: The contrast-enhanced liver is normal in size, contour, and attenuation. There is no intrahepatic biliary ductal dilatation. The hepatic veins and portal veins are patent. Mild pneumobilia is noted. Gallbladder: Surgically absent noting clips in the gallbladder fossa. Stents are noted within the common bile duct and the pancreatic duct. Spleen: Normal in size and attenuation. Pancreas: Unremarkable. Adrenal glands: Unremarkable. Kidneys: The contrast enhanced kidneys are normal in size and without hydronephrosis. The kidneys enhance symmetrically. Scattered subcentimeter cortical hypodensities likely represent cysts but are too small for definitive characterization. Abdominal vasculature: The abdominal aorta is normal in course and caliber. Bowel: There is no bowel obstruction. Enteric contrast reaches the colon. Moderate constipation is observed. The appendix is well-visualized and normal. Peritoneum: No intraperitoneal free air is identified. There is a complex hyperdense lesion in the right ventral abdomen inferior to liver. This measures approximately 9 x 5 x 10.5 cm as seen on image #207. This is new from 04/01/2020 and given the density is typical for a hematoma. There is also trace complex perihepatic fluid, as well as trace fluid in the gallbladder fossa. A small vol ume of complex fluid is seen in the paracolic gutters and in the pelvis. A hematocrit level is noted within the pelvic fluid. No active extravasation is seen at the time of examination. Periumbilical induration is likely related to a laparoscopy port. Lymphadenopathy: None. Pelvic viscera: The bladder, prostate, and seminal vesicles are normal as imaged. Skeletal structures: No lytic or blastic lesions are seen. IMPRESSION: 1. There is postoperative change from recent cholecystectomy with common bile duct and pancreatic duct stents in place. 2. There is an approximately 9 x 5 x 10.5 cm hyperdense lesion within the right ventral abdomen below the liver. This is new from the preoperative examination, and given the density is typical in appearance for a hematoma. 3. There is also trace complex perihepatic fluid, trace complex fluid in the gallbladder fossa, and hyperdense fluid within the paracolic gutters and pelvis. This is typical in appearance for hemoperitoneum. No active extravasation is seen at the time of examination. 4. Moderate constipation. 5. Additional findings as above. PG Care Time/CCT Total # of Minutes Spent Total Time Spent with Patient: Total time spent is greater than 50% in coordination of care (as documented) at patient's floor/unit and/or counseling p atient: Coding Level of Care Code None Diagnoses Hx laparoscopic cholecystectomy Z90.49 Elevated liver function tests R79.89
[2020-04-09 07:34] LABS: Albumin Level 2.9 gm/dl (3.4-5.0); Bilirubin Direct 3.5 mg/dl (0-0.2); Bilirubin,Total 5.3 mg/dl (0.2-1); Total Protein 6.8 gm/dl (6.4-8.2)
[2020-04-09] MEDS: POLYETHYLENE (MIRALAX) 17 GM PACK PO SCH (08:08)
[2020-04-09] MEDS: PANTOprazole 40 MG TAB PO SCH (08:08)
[2020-04-09] MEDS: DOCUSATE SODIUM 100 MG CAP PO SCH (08:08)
[2020-04-09] MEDS: CIPROFLOXACIN 500 MG TAB PO SCH (08:08)
--- NOTE | 2020-04-09 09:54 | Gastroenterology Progress Note ---
Date of Service April 09, 2020 Assessment & Plan (1) Elevated liver function tests: Patient admitted with malaise, acholic stools, and symptoms possibly consistent with biliary obstruction. Was found to have small biliary stones on MRCP and underwent ERCP (04/02) followed by cholecystectomy (04/03). Due to LFTs not trending down, repeat ERCP performed 04/05 w exchange of clogged biliary stent and choledocholithiasis removal. However LFTs still remain elevated. MRCP obtained showed 9cm mass inferior to liver and transverse colon suspect hematoma. F/U CT showed hematoma. He was started on N-Acetylcysteine 21Hr protocol yesterday. LFTs w mild improvement. DDx: AIH, SINGH (hx of fatty liver), DILI, viral hepatitis, ischemic injury to liver. - No contraindication for DC home today as he's clinically well; Will f/u full results of his AIH, viral and hepatitis serologies. Recommend f/u w PCP within 1 week. We will also ask him to have LFTs checked 2x a week via [facility] and make him f/u GI appt. Admission and Anticipated Discharge Date Admission Date: April 03, 2020 Supervising Physician Co-Signing Physician Notes I saw and evaluated the patient this morning. Of note he does seem to be feeling improved today despite his elevation of the AST ALT and bilirubin. Given his stability I think it would be prudent to have him discharged today for further evaluation and follow-up as an outpatient. We are awaiting viral serologies in addition to autoimmune serologies. Subjective Pt feels well, less bloated, no n/v, abd pain. Is passing BM and flatus, tolerating solid meals Review of Systems Review of Systems: All systems reviewed & are unremarkable except as noted in HPI & below Physical Exam Constitutional: WD/WN, vitals as above well groomed, cooperative and comfortable Eyes: + scleral abnormality (icteric), PERRL and EOM intact bilaterally Respiratory: normal respiratory effort, lungs clear to auscultation Cardiovascular: RRR, no murmur, no edema Gastrointestinal (Abdomen): normal bowel sounds, soft, nontender, no hepatosplenomegaly Skin: no rashes, warm and dry + jaundice Psychiatric: A+Ox3, euthymic affect Lymphatic: no lymphedema Results & Data ([facility]) Vital Signs (Past 12 Hours) Vital Signs Temp Pulse Resp BP BP Pulse Ox 04/09/20 07:29 36.8 C 56 L 18 121/73 97 04/08/20 23:07 37.3 C 71 18 126/79 98
--- NOTE | 2020-04-09 11:45 | Surgery Progress Note ---
Date of Service April 09, 2020 Assessment & Plan (1) Hx laparoscopic cholecystectomy: Patient is feeling well today Today's LFTs show- Tb: 5.3, Db: 3.5, AST: 367, ALT: 922, Alkp: 366 GI following and recommended patient undergo lab workup and repeat blood work on From our standpoint patient okay to be discharge with appropriate outpatient follow up for his LFTs Will ask pt to see Dr. Savage in clinic within 7-10 days Dispo instructions given Pt seen with Dr. Car Admission and Anticipated Discharge Date Admission Date: April 03, 2020 Supervising Physician Co-Signing Physician Notes Patient seen and examined, labs reviewed, agree with above. Status post laparoscopic cholecystectomy last week by Dr. Savage with ERCP, followed by ERCP and stent exchange for continued debris within the stent. We have been observing the patient secondary to continued elevation in his bilirubin and LFTs. He is otherwise doing well from a surgical standpoint and not having any discomfort. He still gets fatigued easily, but is tolerating a regular diet. On exam he is jaundiced, afebrile with stable vitals. His abdomen is soft, appropriately tender to palpation. His prior imaging did show a 9 cm likely hematoma which may be contributing to his bilirubin elevation, but should not affect his LFTs all that much. After discussion with GI we are in agreement that the patient is stable for discharge. He will follow up with him closely with repeat LFTs later in the week. He should follow-up with Dr. Savage in 7 to 10 days in the clinic. He was educated about wound care instructions and activity restrictions. Return precautions given, call with questions or concerns. Subjective Patient feeling well. Offers no complaints. Abdominal pain is manageable. Tolerating a diet. Physical Exam Physical Exam: awake/alert Respiratory: normal respiratory effort Gastrointestinal (Abdomen): Inspection/Auscultation: + abdominal surgical incision (c/d/i) Results & Data ([facility]) Vital Signs (Past 12 Hours) Vital Signs Temp Pulse Resp BP Pulse Ox 04/09/20 07:29 36.8 C 56 L 18 121/73 97 PG Care Time/CCT Total # of Minutes Spent Total Time Spent with Patient: Total time spent is greater than 50% in coordination of care (as documented) at patient's floor/unit and/or counseling patient: Coding Level of Care Code None Diagnoses Hx laparoscopic cholecystectomy Z90.49
--- NOTE | 2020-04-09 16:59 | Discharge Summary ---
Date of Service April 09, 2020 Admission HPI Per Admitting Provider Mr. Coffey is a 39 year old male without significant past medical history who presented to [facility] ER today complaining of Nausea, Pale Stools, Dark Urine, Diffuse Pruritus, Jaundice, and Grossly Abnormal LFT's (Total Bilirubin 3.9 mg/dl, ALT 590 U/L, AST 220 U/L, Alk Phos 369 U/L). Patient initially developed some upper abdominal discomfort 8 days ago which he described as "indigestion" with some burning in his chest up into his throat, associated nausea, and decreased appetite. He took omeprazole and the "indigestion" improved. He also took Pepto-Bismol which transiently turned his stools dark, but then his stools became very pale in color. He has noticed dark urine over the past week and he describes diffuse itching/pruritus, feeling bloated, decreased appetite, and he has lost about 2 pounds over the past week. Patient denies any fevers, chills, diarrhea, constipation, or any vomiting. He is able to keep fluids down, he does not feel like eating or have much of an appetite. He denies any focal abdominal pain at this time. Patient denies any chronic medical conditions and he does take any medications on a routine basis. He does take an ibuprofen once in a while, and rarely takes acetaminophen. He specifically denies any history of hepatitis, pancreatitis, or any known biliary issues. He has never had abdominal surgery. Patient rarely drinks alcohol, typically drinking 2 beers per month. He does not use IV drugs or illicit drugs. Principal Diagnosis choledocholithiasis s/p cholecystectomy elevated post procedure LFt's with CBD stent x2 Discharge Exam The patient appeared well remains slightly jaundiced Vital signs as documented. Lungs are clear to auscultation and appear unlabored Cardiac exam, Rhythm is regular.. No murmurs, rubs or gallops. Abdominal exam reveals normal bowel sounds, soft non tender, no masses Is laparoscopic incision sites are crusty but clean dry and intact Extremities are nonedematous and both pedal pulses are normal. Neurologic exam is alert and oriented, no focal loss of strength or sensation Skin is without bruises or rashes Psychologically is without concerns for anxiety or depression. Discharge Data Allergies Allergy/AdvReac Type Severity Reaction Status Date / Time No Known Allergies Allergy Unverified 04/01/20 11:21 Consultations 04/01/20 12:35 ED Decision to Admit Stat 04/01/20 13:19 Consult Gastroenterology Stat 04/01/20 13:29 Consult General Surgery Routine 04/01/20 13:36 Consult General Surgery Stat Procedures Performed Operation Date: 04/02/20 14:10 Actual Procedures p Endoscopic Retrograde Cholangiopancreatography(Not Applicable) - Francisco Bermudez DO Operation Date: 04/03/20 11:00 Actual Procedures p Laparoscopic Cholecystectomy, - Fitz Savage DO s Repair of Umbilical Hernia - Fitz Savage DO Operation Date: 04/05/20 08:55 Actual Procedures p Endoscopic Retrograde Cholangiopancreatogram, Stone Extraction, Stent Exchange(Not Applicable) - Francisco Bermudez DO Ordered Studies 04/01/20 11:01 US gallbladder Stat 04/01/20 13:24 MR MRCP Stat 04/02/20 14:00 FL ERCP biliary ductal Routine 04/05/20 11:30 FL ERCP biliary ductal Routine 04/07/20 22:30 MR MRCP Routine 04/08/20 09:36 CT abd pelvis oral and IV con Routine Hospital Course (1) Cholelithiasis: Concern for primary sclerosing cholangitis vs. possibly retained stones. - S/p ERCP and cholecystectomy on 04/02 & 04/03 respectively. - Patient required a second ERCP with biliary stent occlusion: Removed & replaced on 04/05. - Hepatitis serology, LFTs, HSV, EBV, CMV all pending. - repeat MRCP 04/07/20 IMPRESSION: . Surgically absent gallbladder. No evidence of ductal dilatation. No ductal filling defects identified Trace perihepatic fluid Interval development of a 9 cm partially visualized mass inferior to the liver and to the transverse colon. This statistically represents a hematoma or less likely phlegmonous change. CT scanning confirms hematoma patient is clinically stable [address] scan did complete acetylcysteine infusion is clinically without symptoms will be discharged home with outpatient surveillance by gastroenterology . GI medicine has recommended discontinuing all antibiotics at time of discharge in case there is a chemical hepatitis caused by his antibiotics (2) Jaundice: Secondary to first problem. 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, on 21 hour acetylcistine infu erwin to complete 04/09/20 LFTs are mixed bag summer lower summer hired patient is clinically without any significant distress I did personally speak to gastroenterology regarding his discharge plans which did require additional time the patient did require greater than 30 minutes to prepare this discharge including visit with the patient and discussion Total Time Total Time Spent Total Time Spent (In Minutes): It required greater than 30 minutes to prepare this patient for discharge Discharge Plan Discharge Items Patient Disposition: Home - Self-Care Reason For Visit: CHOLEDOCHOLITHIASIS Discharge Diagnosis: choledocholitihasis, gall stones in duct jaundice Activity: Per Instructions section Lifting: No more than 10 pounds Bathing Comment: may shower; no soaking in tubs/pools Exercise/Sports: Wait until after follow-up appointment Driving/Machine Use: do not resume driving while taking narcotics for pain Non-emergency contact: Primary Care Provider and Trauma Director Call non-emergency contact if: you have any medication questions, your symptoms worsen, your pain is not controlled, your pain is worsening, your pain is concerning for you, you have a fever, your temperature is above 101.5, your wound has increased redness, your wound has increased drainage and your wound pain has increased Follow-up/Referrals: Zuri Muro CRNP [Primary Care Provider] - 04/17/20 10:30 am Fitz Savage DO [Surgeon] - 04/16/20 1:30 pm (Please call to schedule follow up in clinic within 7-10 days) Diet: Regular Addtl Attending Provider Instructions: please eat a low fat diet, please alert your doctor if you have a fever increased abdominal pain or non stop diarrhea please follow up with [facility] for blood work and common bile duct stent removal Pending Studies at Discharge: No Stand-Alone Forms: My [facility], Smoking Cessation Medications and DC Order Prescriptions: Continued diphenhydramine HCl [Benadryl] 25 mg Capsule 25 mg PO HS PRN (Reason: Allergy Symptoms) RF: 0 calcium carbonate-simethicone 500-20 mg Tablet,Chewable 2 tab PO DAILY PRN (Reason: Stomach Upset) RF: 0 Pepto-Bismol 262 mg Tablet 2 tab PO QID PRN (Reason: Diarrhea) RF: 0 omeprazole magnesium [Prilosec OTC] 20 mg Tablet,Delayed Release (Dr/Ec) 20 mg PO DAILY RF: 0 Discharge Orders: Discharge Order (Routine); Ordered 04/09/20 Ordered By: Mark Garrison/Other Patient Handouts: Discharge Instructions for ..., What Is GERD?, Anatomy of the Digestive System Admission Data Admit Date/Time: 04/03/20 10:44 Attending Provider: Mark Diego Admit Provider: Spenser Soto Primary Care Provider: Zuri Muro Other Providers: Fitz Savage ; Desirae Leija ; Jignesh Borges Other Interventions: Discharge Summary Assessment (RN) Last Done: 04/09/20 13:09 Coding Level of Care Code D/C Day Management >30 mins Diagnoses Cholelithiasis K80.81 Biliary obstruction: with biliary obstruction Cholelithiasis location: other site Jaundice [id number]
[2020-04-12 00:07] LABS: ANCA Screen Negative (Negative); Anti Nuclear Antibody Screen NEGATIVE (NEGATIVE); CMV IgG Antibody <0.60 U/mL; CMV IgM Antibody <30.00 AU/mL; Hepatitis A Antibody IgM NON-REACTIVE (NON-REACTIVE); Hepatitis B Core Antibody IgM NON-REACTIVE (NON-REACTIVE); Herpes Simplex Ab IgG-1 <0.90 index; Herpes Simplex Ab IgG-2 <0.90 index; Myeloperoxidase Ab <1.0 AI (<1.0); Proteinase-3 AB <1.0 AI (<1.0)
== END 2020-04-09 15:00 | disposition home or self-care (01) | DRG 418 ==
LOC: ED 10:39 → 3W 10:39 → SUATTDRO 13:35 → 3W 14:22 → SUATTDRO 04-03 10:44